=== PATIENT | male | born 1960 | race Caucasian/White ===

== ENCOUNTER → 2016-08-05 | Outpatient (CLI) | payer BC ==
--- NOTE | 2016-08-05 12:03 | XR ---
EXAMINATION TYPE: XR lumbar spine 2 or 3V DATE OF EXAM: 08/05/2016 11:25 AM CLINICAL HISTORY: pain TECHNIQUE: Three views of the lumbar spine are submitted. COMPARISON: 05/07/2016 FINDINGS: Again noted are changes fusion and lumbar laminectomy at L4-5 with rad[address] screws [address] place as well as intervertebral body spacers. Anterolisthesis of L4 and L5 is stable and measures approximately 3.6 mm. Severe degenerative change L5-S1. Remaining levels are unremarkable. IMPRESSION: Stable appearance of postoperative lumbar spine. ICD 10 NO FRACTURE, INITIAL EVALUATION
== END | disposition home or self-care (01) ==
LOC: RADXRMAIN 11:09
DX: M43.16 Spondylolisthesis, lumbar region (principal); M48.06 Spinal stenosis, lumbar region; Z98.1 Arthrodesis status
CPT/HCPCS: 72100

== ENCOUNTER → 2016-09-05 | Outpatient (CLI) | payer BC ==
--- NOTE | 2016-09-05 17:18 | MR ---
EXAMINATION TYPE: MR lumbar spine wo/w con DATE OF EXAM: 09/05/2016 3:33 PM COMPARISON: 02/15/2016 HISTORY: 56-year-old male Spondylolisthesis, lumbar region, Hx of surgery 2003 and . Extreme pa in after 2016 surgery. Technique: Multiplanar, multisequence images of the lumbar spine were obtained before and after admin istration of 19 mL intravenous MultiHance gadolinium contrast. FINDINGS: Interval removal of S1 transpedicular screws. The L5 transpedicular screws remain in place. Interval placement of L4-L5 posterior fusion with new L4 laminectomy decompressing the spinal canal at the lev el of grade 1 anterolisthesis. No retropulsion of the interbody device at L4-L5. Vertebral body heights are preserved. There is mild degenerative disc disease above the fusion at L3-L4 with mild disc desiccation and disc bulging. There is a component of mild congenital spinal canal stenosis in the lumbar spine with AP canal dimen raul of 1.3 cm. Further attenuation of the thecal sac secondary to prominent dorsal epidural fat. The re is also prominent ventral epidural fat opposite L5 level and below. Conus medullaris is normal. Partially visualized 2 cm cyst medial upper pole left kidney At T12-L1, there is mild congenital spinal canal narrowing without neural foraminal stenosis. At L1-L2, there is mild congenital spinal canal narrowing and mild facet degenerative change without significant neural foraminal stenosis. At L2/L3, there is mild facet arthropathy and mild congenital spinal canal narrowing with mild bulgin g disc and mild bilateral neuroforaminal stenosis. At L3-L4, the level above the fusion, there appears to be a new 5 mm centrally nonenhancing T1 hypoin tense and T2 hyperintense structure within the right lateral recess abutting the right lateral cauda equina nerve roots and displacing the traversing right L4 and L5 nerve roots. This also appears to co ntribute to a moderate right neuroforaminal stenosis, slightly increased from 02/15/2016. A mild left n euroforaminal stenosis also appears increased in disc material may be abutting the exiting left L3 ne rve root. At L4-L5, diffuse level, there is grade 1 anterolisthesis with dorsal decompression of the thecal sac . There is relatively similar mild bilateral neural foraminal stenosis. At L5-S1, prominent ventral epidural fat with dorsal decompression of the spinal canal. There is aguilar lar mild to moderate left and mild right neural foraminal stenosis. No definite suspicious enhancing perineural granulation tissue. No prevertebral or paravertebral soft tissue abnormality seen. IMPRESSION: 1. Interval removal of S1 posterior fusion hardware now with L4-L5 posterior/interbody fusion with c orresponding laminectomy and fixed grade 1 anterolisthesis now. 2. Above the fusion at L3-L4, there is a possible 5 mm synovial cyst encroaching onto the right later al recess that appears new and has mass effect onto the traversing right L4 and L5 nerve roots. This also contributes to a moderate right neuroforaminal stenosis, increased from 02/15/2016. A mild left ne uroforaminal stenosis at this level also appears increased with disc material abutting the exiting le ft L3 nerve root. 3. At the newly fused level, there is similar mild bilateral neuroforaminal stenoses. 4. At the previously fused L5-S1 level, there is similar mild to moderate left and mild right neurofo raminal stenosis. 5. Underlying mild congenital spinal canal stenosis.
== END | disposition home or self-care (01) ==
LOC: RADMRIMAIN 14:36
DX: M48.06 Spinal stenosis, lumbar region (principal); M99.73 Connective tissue and disc stenosis of intervertebral foramina of lumbar region; Z98.1 Arthrodesis status
CPT/HCPCS: 72158; A9577

== ENCOUNTER → 2016-11-26 | Outpatient (CLI) | payer BC ==
[2016-11-25 09:00] VITALS: BMI 34.3
[2016-11-26 12:57] VITALS: BP 137/80; PULSE 75; RESP 18; TEMP 97.7
--- NOTE | 2016-11-26 13:40 | P.HPIM ---
History of Present Illness H&P Date: 11/26/16 Chief Complaint: low back pain This is a 56-year-old patient referred by Dr. Agosto for chronic pain in low back without significant radiation to legs, but some radiation to hips. Patient has been taking medications from primary care physician including tramadol (rarely) medications with some relief. Patient denies adverse drug effects from medications. Patient also denies new-onset weakness, bowel/ bladder incontinence, or any other signs or symptoms of cauda equina syndrome. There are no signs of acute intoxication, and no indications of medication diversion or overuse. Patient notes that pain worsens significantly with standing and walking, and improves with rest, ice, and medication. Patient has used several types of medications for pain, including NSAIDS, OPIOIDS, TRAMADOL, but does not like taking pain medications. Patient HAS had surgery, most recently lami and fusion #2 by Surendra in March 2016. Patient HAS had injections previously, specifically epidural steroid injections , prior to his second back surgery, which helped him slightly. Patient HAS NOT had physical therapy recently. In addition to above, 13-point review of systems is also negative for chest pain , shortness of breath, changes in vision, changes in hearing, new onset weakness , abdominal pain, diarrhea, extreme fatigue, malaise, fever, skin changes, homicidal or suicidal ideation, or bowel or bladder incontinence. Vital Signs: Reviewed in EMR Gen: WDWN, AAOx3, NAD HEENT: NCAT, EOMI, hearing grossly normal Pulm: resp unlabored Abd: soft, NT, ND Neck: supple, trachea midline ROM in flexion lumbar spine: reduced ROM in extension lumbar spine: reduced Lumbar paravertebral tenderness: + Facet loading: + bilateral SI joint tenderness: + bilateral, L > R Rene's test: + bilateral, L > R Straight leg raise: neg Neuro: CN II-XII grossly intact, muscle strength lower extremities PRESERVED Past Medical History Past Medical History: Chest Pain / Angina, GERD/Reflux, Hyperlipidemia, Hypertension, Skin Disorder, Sleep Apnea/CPAP/BIPAP Additional Past Medical History / Comment(s): LOWER BACK PAIN, PSORAISIS, AND PSORIATIC ARTHRITIS, KIDNEY STONES, VERTIGO History of Any Multi-Drug Resistant Organisms: None Reported Past Surgical History: Back Surgery, Heart Catheterization, Orthopedic Surgery Additional Past Surgical History / Comment(s): KNEE ARTHROSCOPY, EGD WITH DILATION, FUSION OF S1-L5, CAGE L4 Past Anesthesia/Blood Transfusion Reactions: No Reported Reaction Past Psychological History: Anxiety, Depression Smoking Status: Former smoker Past Alcohol Use History: Occasional Additional Past Alcohol Use History / Comment(s): STARTED SMOKING 1971, HAS QUIT IN PAST FOR 8 YRS Past Drug Use History: None Reported - Past Family History Mother Family Medical History: Cancer Additional Family Medical History / Comment(s): SKIN Medications and Allergies Home Medications Medication Instructions Recorded Confirmed Type Aspirin [Adult Low Dose Aspirin EC] 81 mg PO DAILY 07/10/15 11/26/16 History Atenolol 50 mg PO DAILY 07/10/15 11/26/16 History Esomeprazole Magnesium [NexIUM] 40 mg PO DAILY 07/10/15 11/26/16 History Ezetimibe [Zetia] 10 mg PO DAILY 07/10/15 11/26/16 History Fish Oil/Dha/Epa [Fish Oil 1,200 1,200 mg PO DAILY 07/10/15 11/26/16 History mg Fish Oil] Valsartan/Hydrochlorothiazide 0.5 tab PO DAILY 07/10/15 11/26/16 History [Valsartan-Hctz 160-12.5 mg Tab] ALPRAZolam [Xanax] 0.5 mg PO Q8H PRN 07/23/15 11/26/16 History Apremilast [Otezla] 30 mg PO DAILY 11/25/16 11/26/16 History Citalopram Hydrobromide 20 mg PO DAILY 11/25/16 11/26/16 History Ibuprofen [Motrin] 800 mg PO DAILY PRN 11/25/16 11/26/16 History Isosorbide Dinitrate 30 mg PO DAILY 11/25/16 11/26/16 History hydrALAZINE HCL [Apresoline] 50 mg PO BID 11/25/16 11/26/16 History traMADol HCL [Ultram] 50 mg PO DAILY 11/25/16 11/26/16 History predniSONE 25 mg PO DIRECTED 11/26/16 11/26/16 History Allergies Allergy/AdvReac Type Severity Reaction Status Date / Time atorvastatin calcium AdvReac muscle pain Verified 11/26/16 12:43 [From Lipitor] Physical Exam Vitals: Vital Signs Temp Pulse Resp BP 11/26/16 12:47 97.7 F 75 18 137/80 Results Comments: MRI lumbar spine dated 09/05/2016 demonstrates facet degenerative changes at the L1-L2, L2-L3, L4-L5, and L5-S1 levels. At the L3-L4 level above the fusion there does appear to be a new 5 mm centrally nonenhancing T1 hypointense and T2 hyperintense structure within the right lateral recess displacing the traversing right L4 and L5 nerve roots. This is contributing to moderate right- sided neural foraminal stenosis. At the L4-L5 level there is a grade 1 anterolisthesis with dorsal decompression of thecal sac with mild bilateral neural foraminal stenosis. At the L5-S1 level with prominent ventral epidural fat with dorsal decompression of the spinal canal and moderate left and right neural foraminal stenosis. There is no perineural granulation tissue noted. Assessment and Plan (1) Postlaminectomy syndrome Status: Chronic (2) Lumbar spondylosis Status: Chronic (3) Chronic pain disorder Status: Chronic Plan: Plan: 1. Explanation: Opioid and psychological risk scores were reviewed. Diagnoses , prognoses, and multiple treatment options including but not limited to physical therapy, interventional therapies, adjuvant medical therapies, narcotic medication therapies, and surgery were discussed with the patient and all questions were answered to the patient's satisfaction. 2. Opioid agreement: no opioids prescribed today 3. Counseling: The patient was counseled extensively on BODY MASS INDEX, EXERCISE. Specifically, the patient was instructed regarding the importance of smoking cessation, obesity, and exercise in the context of both chronic pain and overall health. 4. Procedures: bilateral lumbar MBB L3-S1, then RFA if relief 5. Consultations: none 6. Investigations: none 7. Medications: none prescribed 8. Disposition: f/u for procedure as scheduled PQRS measures: 1-Patient's medications are documented in the chart. 2-Tobacco use is negative 3-Patient has not had a pneumococcal vaccine. 4-Advanced care planning discussed, patient unable to give. 5-Opioid contract NOT signed with the patient. 6-Pain positive, follow-up visit or procedure scheduled 7-Patient's blood pressure measured and documented, and patient will follow up with the primary care due to hypertension. 8-Patient's weight was measured, and body mass index ABOVE the normal limits, and counseling was done. Patient instructed to follow up with PCP. 9-Patient WAS NOT identified as an unhealthy alcohol user. Time with Patient: Greater than 30
== END | disposition home or self-care (01) ==
LOC: PNWHC3 12:34
PROVIDERS: ATTEND Anesthesiology
DX: M47.816 Spondylosis without myelopathy or radiculopathy, lumbar region (principal); M96.1 Postlaminectomy syndrome, not elsewhere classified; G89.29 Other chronic pain; K21.9 Gastro-esophageal reflux disease without esophagitis; E78.5 Hyperlipidemia, unspecified; F41.9 Anxiety disorder, unspecified; F32.9 Major depressive disorder, single episode, unspecified; I10 Essential (primary) hypertension; Z79.82 Long term (current) use of aspirin; Z79.51 Long term (current) use of inhaled steroids; Z79.899 Other long term (current) drug therapy; Z88.8 Allergy status to other drugs, medicaments and biological substances; Z87.891 Personal history of nicotine dependence
CPT/HCPCS: 99211

== ENCOUNTER → 2016-12-03 | Outpatient (CLI) | payer BC ==
--- NOTE | 2016-12-03 12:00 | XR ---
EXAMINATION TYPE: XR lumbar spine 2 or 3V DATE OF EXAM: 12/03/2016 11:28 AM COMPARISON: 08/05/2016 HISTORY: 56-year-old male lumbar spinal stenosis, back surgery one year ago. TECHNIQUE: 3 views FINDINGS: There are postsurgical changes of L4-L5 posterior and interbody fusion. Trace grade 1 anterolisthesis above the fusion at L3-L4 is unchanged. Also, grade 1 retrolisthesis at L2-L3 redemonstrated. Verteb ral body heights are preserved. Positioning of the interbody device stable. Fixed grade 1 anterolisth esis at the fused level. IMPRESSION: 1. Postsurgical changes of L4-L5 posterior and interbody fusion with a fixed grade 1 anterolisthesis at the fused level. 2. Grade 1 retrolistheses at both L2-L3 and L3-L4 relatively similar. 3. No vertebral compression collapse.
== END | disposition home or self-care (01) ==
LOC: RADXRMAIN 11:04
DX: M43.16 Spondylolisthesis, lumbar region (principal); M43.26 Fusion of spine, lumbar region; Z98.890 Other specified postprocedural states
CPT/HCPCS: 72100

== ENCOUNTER 2016-12-30 07:28 | Day surgery (SDC) | payer BC ==
[2016-12-25 16:01] VITALS: BMI 35.3
[~2016-12-30 07:28] MED LIST: LACTATED RINGERS 1,000 ML IV SCH
[2016-12-30 07:53] VITALS: RESP 16; TEMP 97.3
[2016-12-30] MEDS ORDERED: LIDOCAINE 1% 20 ML VIAL (10MG/ML) FOR IV START SQ ONE (08:03)
[2016-12-30] MEDS ORDERED: BUPIVACAINE (PF) 0.5% 30 ML VIAL ONE (08:38)
[2016-12-30] MEDS ORDERED: fentaNYL (PF) 50 MCG/ML 2 ML AMP ONE (08:38)
[2016-12-30] MEDS ORDERED: MIDAZOLAM 2 MG/2 ML VIAL ONE (08:38)
[2016-12-30] MEDS ORDERED: DEXAMETHASONE SOD PHOS (MDV) 100 MG/10 ML VIAL ONE (08:38)
--- NOTE | 2016-12-30 09:09 | P.PCN ---
Date of Procedure: 12/30/16 Preoperative Diagnosis: Postoperative Diagnosis: Procedure(s) Performed: PREOPERATIVE DIAGNOSIS : 1- Lumbar spondylosis with Facet Arthropathy without myelopathy . POSTOPERATIVE DIAGNOSIS: 1- Lumbar spondylosis with Facet Arthropathy without myelopathy . PROCEDURE: Diagnostic bilateral L3 -4 , L4 -5 , and L5-S1 medial branch block under fluoroscopy ANESTHESIA: Local with 1% lidocaine 6 ml ; IV sedation with Versed 2 mg and Fentanyl 100 mcg. EBL: Minimal COMPLICATION: None. IV FLUIDS: 100 mL of normal saline. PROCEDURE INDICATION: Chronic low back pain secondary to Facet arthropathy unresponsive to conservative treatment. PROCEDURE DESCRIPTION: the patient was seen and identified in the preop holding area , risks and benefits and possible complications of the procedure and alternative were discussed with the patient, and the patient agreed to proceed with the procedure and signed the consent IV was started and vital signs monitored during the procedure and fluoroscopy was used to maximize the benefit and accuracy of the needle placement, and sedation was given to decrease patient anxiety, patient was taken to the procedure room and placed in prone position vital signs monitored in the back prepped with chlorhexidine X3 then under strict sterile technique using a right oblique fluoroscopy ,the junction of the transverse process and the superior articulating process of the right L3- 4 , L4- 5, and L5-S1 vertebra which corresponding to the fluoroscopy image of the eye of the Tyrell dog on the block side for the medial branches and subsequently , after local infiltration of skin and subcu tissuies with lidocaine 1% one mL at each level ,then 22- gauge Quincke-type needles , 3 needle was used , each one of them placed at the junction of the base of the transverse process and the superior articular process at the appropriate level, and the needle was advanced until the periosteum contacted, needle placement confirmed with AP oblique and lateral view and after appropriate needle placement confirmed, and after negative aspiration for heme and CSF and there was no paresthesia 1-1/2 mL of Marcaine 0.5% mixed with 40 mg Kenalog , then half mL injected at each level after negative aspiration the needle subsequently removed and the same procedure repeated for the left side at left side at L3-4, L4- 5 and L5-S1 levels. At the end of the procedure and the needles removed and a bandage applied after the skin was cleaned the cleaning solution patient taken to recovery room in stable condition and monitors in the recovery room for 20-30 minutes and discharged home in stable condition after discharge criteria met and patient will follow up with the pain clinic in 2-4 weeks Implants: Indications for Procedure: Operative Findings: Description of Procedure:
[2016-12-30 09:17] VITALS: PULSE 60
--- NOTE | 2016-12-30 09:22 | FL ---
EXAMINATION TYPE: FL guided pain mgmt statistic DATE OF EXAM: 12/30/2016 HISTORY: Flouroscopy time 10 seconds of fluoroscopy provided. IMPRESSION: 1. Fluoroscopy time.
[2016-12-30 09:24] VITALS: BP 157/82
[2016-12-30] MEDS ORDERED: IV FLUID CONTINUATION 1,000 ML IV ONE (09:48)
== END 2016-12-30 09:54 | disposition home or self-care (01) ==
LOC: ORPAIN 07:28
PROVIDERS: ATTEND Specialist
DX: G89.29 Other chronic pain (principal); M47.816 Spondylosis without myelopathy or radiculopathy, lumbar region; M46.96 Unspecified inflammatory spondylopathy, lumbar region; I10 Essential (primary) hypertension; I25.10 Atherosclerotic heart disease of native coronary artery without angina pectoris; G47.33 Obstructive sleep apnea (adult) (pediatric); Z88.8 Allergy status to other drugs, medicaments and biological substances
CPT/HCPCS: 64493; 64494; 64495; 99152; J2250; J3010; J1100

== ENCOUNTER 2017-02-06 12:23 | Day surgery (SDC) | payer BC ==
[2017-02-03 14:14] VITALS: BMI 34.5
[2017-02-06 12:43] VITALS: RESP 18; TEMP 98.2
[2017-02-06] MEDS ORDERED: LIDOCAINE 1% 20 ML VIAL (10MG/ML) FOR IV START INTRADERMA ONE (13:07)
[2017-02-06 13:09] LABS: Glucose,Whole Blood 84 mg/dL (75-99)
--- NOTE | 2017-02-06 13:27 | P.PCN ---
Date of Procedure: 02/06/17 Preoperative Diagnosis: Postoperative Diagnosis: Procedure(s) Performed: Implants: Surgeon: Matias Barbosa Pathology: none sent Condition: stable Disposition: PACU Indications for Procedure: Operative Findings: Description of Procedure: PREOPERATIVE DIAGNOSIS: L3-L4, L4-L5, and L5-S1 spondylosis without myelopathy and facet arthropathy. POSTOPERATIVE DIAGNOSIS: L3-L4, L4-L5, and L5-S1 spondylosis without myelopathy and facet arthropathy. PROCEDURE DESCRIPTION: Patient presents for L3-L4, L4-L5 and L5-S1 diagnostic medial branch blocks under fluoroscopic guidance. The procedure is performed using fluoroscopic guidance during needle placement to assure proper position and maximize safety. ANESTHESIA: Local with 1% lidocaine; conscious sedation EBL: Minimal PROCEDURE INDICATION: Patient with lumbar facet arthropathy signs and symptoms, here for diagnostic medial branch block. Pt does not take any blood thinning medications. PROCEDURE DESCRIPTION: The patient was seen and identified in the preoperative area. Risks, benefits, complications, and alternatives were discussed with the patient (including but not limited to incomplete pain relief, bleeding, infection, nerve damage, and allergies to medications), the patient agreed to proceed with the procedure and signed the consent after all questions were answered. Patient was taken to the OR and time out was completed to verify proper patient, position, laterality of pain, and allergies. Pt was placed in the prone position and a pillow was placed under the abdomen to reduce lumbar lordosis. The lumbosacral area was prepped and draped in the usual sterile fashion. Using oblique fluoroscopy, the eye of the "Tyrell dog" of right L4 vertebral body, which corresponds to the path of the medial branch originating from the level above, which is L3 in this case, was identified. Subsequently, a 22-gauge 3.5-inch spinal needle was inserted under fluoroscopic guidance toward the eye of the "Tyrell dog" of the right L4 vertebral body, corresponding to the junction of the superior articular process and the transverse process of the pedicle of the same level. After needle tip confirmation on lateral view and after negative aspiration for CSF and blood and without paresthesias, 1 mL of a 6 ml solution of 0.5% preservative-free bupivacaine and 40 mg Kenalog was injected. Subsequently the needle was withdrawn intact and the same procedure was repeated for the right L4, right L5, left L3, left L4, and left L5 medial branches which together with right L3 medial branch correspond to the sensory innervation of the bilateral L3-L4, L4-L5, and L5-S1 facet joints. Needle was withdrawn intact after each injection. At the end of the procedure, the skin was cleansed and bandages were applied. COMPLICATIONS: None. DISPOSITION/PLAN: The patient taken to the recovery area after the procedure in a stable condition for observation. Patient was reexamined prior to discharge and there were no issues. Patient was discharged home, accompanied by an adult, after meeting discharged criteria. Discharge instructions were give to the patient by the staff. Patient was specifically instructed not to drive today and to rest for the rest of the day. If patient has relief, he will be scheduled for right vs. left lumbar RFA. Visualization was somewhat technically challenging at L3- L4 and L4-L5 levels given patient's hardware, so can consider performing ablation at one level above if needed.
[2017-02-06] MEDS ORDERED: IV FLUID CONTINUATION 1,000 ML IV ONE (13:33)
--- NOTE | 2017-02-06 13:44 | FL ---
FLUOROSCOPY 22 of fluoroscopy time were utilized during Pain Injection. 6 images document the procedure.
[2017-02-06 13:51] VITALS: BP 145/85; PULSE 72
== END 2017-02-06 14:12 | disposition home or self-care (01) ==
LOC: ORPAIN 12:23
PROVIDERS: ATTEND Anesthesiology
DX: G89.29 Other chronic pain (principal); M47.816 Spondylosis without myelopathy or radiculopathy, lumbar region; M47.817 Spondylosis without myelopathy or radiculopathy, lumbosacral region; M46.96 Unspecified inflammatory spondylopathy, lumbar region; M46.97 Unspecified inflammatory spondylopathy, lumbosacral region; I10 Essential (primary) hypertension; E78.5 Hyperlipidemia, unspecified; Z79.82 Long term (current) use of aspirin; Z79.1 Long term (current) use of non-steroidal anti-inflammatories (NSAID); Z79.891 Long term (current) use of opiate analgesic; Z79.899 Other long term (current) drug therapy; Z88.8 Allergy status to other drugs, medicaments and biological substances
CPT/HCPCS: 64493; 64494; 64495; 99152; J2250; J3301

== ENCOUNTER 2017-03-11 06:56 | Day surgery (SDC) | payer BC ==
[2017-03-03 15:55] VITALS: BMI 35.0
[2017-03-11 07:08] VITALS: RESP 16; TEMP 97.4
[2017-03-11] MEDS ORDERED: LIDOCAINE 1% 20 ML VIAL (10MG/ML) FOR IV START INTRADERMA ONE (07:14)
[2017-03-11] MEDS ORDERED: ENALAPRILAT 1.25 MG/ML 1 ML VIAL IVP STA (07:59)
--- NOTE | 2017-03-11 07:59 | P.PCN ---
Date of Procedure: 03/11/17 Preoperative Diagnosis: Postoperative Diagnosis: Procedure(s) Performed: Implants: Surgeon: Matias Barbosa Pathology: none sent Condition: stable Disposition: PACU Indications for Procedure: Operative Findings: Description of Procedure: PREOPERATIVE DIAGNOSIS: Lumbar spondylosis without myelopathy and facet arthropathy POSTOPERATIVE DIAGNOSIS: Lumbar spondylosis without myelopathy and facet arthropathy PROCEDURES: Left Radiofrequency thermocoagulation, L3-L4, L4-L5, and L5-S1 medial branch, with fluoroscopic guidance. ANESTHESIA: 1% lidocaine plain; Conscious sedation with versed/fentanyl EBL: Minimal PROCEDURE INDICATION: The patient with low back pain secondary to lumbar arthropathy who had more than 50% relief of pain with previous diagnostic lumbar medial branch block with bupivacaine. Patient presents for left lumbar RFA today; no use of blood thinners. PROCEDURE DESCRIPTION / TECHNIQUE: The patient was seen and identified in the preoperative area. Risks, benefits, complications, and alternatives were discussed with the patient (including but not limited to incomplete pain relief , bleeding, infection, nerve damage, and allergies to medications), the patient agreed to proceed with the procedure and signed the consent after all questions were answered. Patient was taken to the OR and time out was completed to verify proper patient , position, laterality of pain, and allergies. Pt was placed in the prone position. IV was started. Vital signs remained stable throughout the procedure. A pillow was placed under the patients chest to decrease lordosis. The lumbosacral area was prepped and draped in the usual sterile fashion. Vital signs were closely monitored during the procedure. Conscious sedation was used during the procedure to decrease patients anxiety. Using AP and then oblique fluoroscopy, the eye of the Tyrell dog corresponding to the connection between the superior and transverse articular processes of left L4, L5 and top of the sacrum were identified, marked, and localized with 1% lidocaine. Subsequently, a 20 gauge, 100-mm radiofrequency cannula with a 10-mm active tip was advanced guided by fluoroscopy to each of the eyes of the Tyrell dog at left L3, L4, and L5 medial branches. Each site then underwent sensory testing at 50 Hz and 0 to 1 volt and motor testing at 2 Hz and 0 to 3 volt with local stimulation, but no radicular symptoms down the legs. Thereafter the left L3, L4, and L5 medial branch sites underwent radiofrequency thermocoagulation at 80 degrees Celsius for 90 seconds after injecting 0.5 ml of PF lidocaine 1%. After thermocoagulation, 1 ml of the block solution containing 3 mL of preservative-free 1% lidocaine was injected at the left L3, L4, and L5 medial branch levels after negative aspiration of CSF and blood and with no paresthesias. Cannulas were retracted while injecting lidocaine 1% until the needles were removed. At the end of the procedure, the skin was cleansed and bandages were applied. COMPLICATIONS: No acute complications. DISPOSITION / PLANS: The patient was placed in a supine position and transferred to the recovery area in a stable condition for observation and was discharged from the recovery room after meeting discharge criteria. Home discharge instructions given to the patient by the staff. The patient was reexamined prior to discharge. The patient will schedule right lumbar RFA next.
--- NOTE | 2017-03-11 08:08 | FL ---
FLUOROSCOPY 30 seconds of fluoroscopy time were utilized during Pain Injection. 3 images document the procedure.
[2017-03-11] MEDS ORDERED: IV FLUID CONTINUATION 1,000 ML IV ONE (08:11)
[2017-03-11 08:17] VITALS: PULSE 60
[2017-03-11 08:40] VITALS: BP 147/80
== END 2017-03-11 08:54 | disposition home or self-care (01) ==
LOC: ORPAIN 06:56
PROVIDERS: ATTEND Anesthesiology
DX: G89.29 Other chronic pain (principal); M47.816 Spondylosis without myelopathy or radiculopathy, lumbar region; M46.96 Unspecified inflammatory spondylopathy, lumbar region; I10 Essential (primary) hypertension; E78.5 Hyperlipidemia, unspecified; Z88.8 Allergy status to other drugs, medicaments and biological substances; Z79.82 Long term (current) use of aspirin; Z79.899 Other long term (current) drug therapy
CPT/HCPCS: 64635; 64636; 99152; 99153; J2250; J3010

== ENCOUNTER 2017-04-08 06:56 | Day surgery (SDC) | payer BC ==
[2017-04-03 15:54] VITALS: BMI 33.4
[2017-04-08 08:25] VITALS: TEMP 97.6
[2017-04-08] MEDS ORDERED: LACTATED RINGERS 1,000 ML IV ONE (08:25)
[2017-04-08] MEDS ORDERED: LIDOCAINE 1% 20 ML VIAL (10MG/ML) FOR IV START INTRADERMA ONE (08:27)
[2017-04-08 08:42] LABS: Glucose,Whole Blood 93 mg/dL (75-99)
--- NOTE | 2017-04-08 08:55 | P.PCN ---
Date of Procedure: 04/08/17 Procedure(s) Performed: PREOPERATIVE DIAGNOSIS: 1-Lumbar Spondylosis with Facet Arthropathy without myelopathy. POSTOPERATIVE DIAGNOSIS: 1- Lumbar Spondylosis with Facet Arthropathy without myelopathy. PROCEDURES : Right Radiofrequency thermocoagulation, L3-L4, L4-L5, and L5-S1 medial branch, with fluoroscopic guidance ANESTHESIA: IV sedation with versed 2 mg and fentaneyl 50 mcg and local infiltration with lidocaine 1% 6 ml EBL: Minimal PROCEDURE INDICATION: The patient with low back pain secondary to lumbar facet arthropathy who had more than 50% relief of her pain with previous diagnostic lumbar medial branch block with bupivacaine. PROCEDURE DESCRIPTION / TECHNIQUE: The patient was seen and identified in the preoperative area. Risks, benefits, complications, including but not limited to risk of infection ,bleeding , allergic reactions to the medications and no complete pain releife , and alternatives were discussed with the patient, the patient agreed to proceed with the procedure and signed the consent. IV was started. Vital signs remained stable throughout the procedure. Patient was taken to the OR and time out was completed. The patient was placed in the prone position on the procedure table. The lumber area was prepped and draped in the usual sterile fashion. . Vital signs were closely monitored during the procedure .IV sedation was used during the procedure to decrease patients anxiety. Using AP and then oblique fluoroscopy, the ``eye of the Tyrell dog corresponding to the connection between the superior and transverse articular processes of right L3, L4, and L5 were identified, marked, and localized with 1 % lidocaine. Subsequently, a 18 [id number] radiofrequency cannula with a 10- mm active tip was advanced guided by fluoroscopy to each of the ``eyes of the Tyrell dog at right L3, L4, and L5. Each site then underwent sensory testing at 50 Hz and 0 to 1 volt and motor testing at 2.5 Hz and 0 to 3 volt with local stimulation, but no radicular symptoms down the legs. Thereafter the right L3-4, L4-5, and L5-S1 sites underwent radiofrequency thermocoagulation at 80 degrees celsius for 90 seconds after injecting 0.5 ml of PF lidocaine 1%. then After the thermocoagulation done , 1 ml of the block solution containing Kenalog 40 mg and 3 ml of marain 0.5% was injected at the right L3- 4 , L4-5 , and L5-S1, levels after negative aspiration of CSF and blood and with no paresthesias. Cannulas were retracted while injecting lidocaine 1% until the needle is out. At the end of the procedure, the skin was cleansed and bandages were applied. COMPLICATIONS: No acute complications. DISPOSITION / PLANS: The patient was placed in a supine position and transferred to the recovery area in a stable condition for observation and was discharged from the recovery room after meeting discharge criteria. Home discharge instructions given to the patient by the staff. The patient was reexamined prior to discharge. The patient will schedule a follow up in the clinic in 2-4 weeks.
[2017-04-08] MEDS ORDERED: IV FLUID CONTINUATION 1,000 ML IV ONE (09:01)
[2017-04-08 09:12] VITALS: RESP 18
[2017-04-08 09:17] VITALS: BP 155/79; PULSE 56
[2017-04-08] MEDS ORDERED: LACTATED RINGERS 1,000 ML IV SCH (09:17)
--- NOTE | 2017-04-08 09:56 | FL ---
EXAMINATION TYPE: FL guided pain mgmt statistic DATE OF EXAM: 04/08/2017 CLINICAL HISTORY: Low back pain. TECHNIQUE: Fluoroscopy. COMPARISON: None. FINDINGS: Fluoroscopic guidance was provided during pain relief procedure performed by Dr. Beckman . A total of 7 seconds of fluoroscopic time was utilized during the procedure and 3 spot images are acquired. Images acquired shows needle localization at several levels in the lower lumbar spine, pos tsurgical change L4-L5 level is noted. IMPRESSION: As Above.
== END 2017-04-08 09:38 | disposition home or self-care (01) ==
LOC: ORPAIN 06:56
PROVIDERS: ATTEND Specialist
DX: M46.96 Unspecified inflammatory spondylopathy, lumbar region (principal); M47.816 Spondylosis without myelopathy or radiculopathy, lumbar region; Z88.8 Allergy status to other drugs, medicaments and biological substances
CPT/HCPCS: 64635; 64636 ×2; 99152; J2250; J3301; J3010; 99153

== ENCOUNTER → 2017-04-30 | Outpatient (CLI) | payer BC ==
[2017-04-30 12:31] VITALS: BP 147/84; PULSE 64; RESP 18
--- NOTE | 2017-04-30 13:09 | P.PN ---
Subjective Progress Note Date: 04/30/17 This is follow-up visit for this patient with a history of severe and chronic low back pain secondary to lumbar degenerative disc disease, lumbar spondylosis with facet arthropathy, lumbar spinal stenosis we did interventional pain management injection, diagnostic medial branch block and it was successful and recently we have done at the frequency ablation of the medial branch lumbar area , 4 days ago patient was tripped and he fell on his back , and he started feeling severe low back pain, bilaterally. He denies any motor or sensory deficit , He is able to ambulate on his own without difficulty patient currently on 1-Ultram 50 mg when necessary Patient denies any side effects of the medication, denies excessive drowsiness or sleepiness, denies suicidal ideation, and reports that the current pain medication is NOT helping To control the pain and improve activity of daily living . Patient denies any motor or sensory deficit, denies change in bowel movement or urination, patient denies any fever or night sweats Objective - Exam Physical Examinations : 1-Constitutiona : Cooperative , not in acute distress . 2-HEENT : nech ; supple , no Lymphadenopathy , normal thyroid size . eyes : no ptosis , no icterus, no photophobia . ENT : normal of hearing , normal oropharynx , no Thrush . 3- Respiratory : Chest clear to auscultations Bilaterally , no wheezing , no Rhonchi . 4- Cardiovascular : regular rate and rhythem , S1 , S2 , no S3 , no S4. 5- Gastrointestinal : abdomen soft no tenderness , bowel sounds positive all four quadrents , no organomegally . 6- Genitourinary : Defferred . 7- neurologic : Cranial nerve II to XII intact , no focal neurological deffecit . 8-psychatric : alert , oriented X 3 , appropriate affect , intact judgment and insight . 9-Lymphatic : no Lymphadenopathy . 10- musculoskeltal : , Lumber spine = normal moter stegnth lower extremities ,thigh and legs .5/5 deep tendon reflexes : normal Knee Jerk , normal ankle Jerk . lumber facet Loading Test positive strait leg raising test negative billaterale Fabere test negative bilaterally Sever tenderness over the Sacroiliac joint on the Left side Trigger point in the lumbar paravertebral muscles bilaterally Assessment and Plan Plan: Assessment and plan= chronic low back pain secondary to lumbar degenerative disc disease , lumbar spondylosis with lumbar facet arthropathy , status post radiofrequency ablation of the medial branch lumbar area , he did very well after the radiofrequency , currently patient having low back pain after he fell exam was negative for any focal neurologic deficit, mostly patient had myofascial component of the low back pain for this reason I recommend patient to be started on baclofen 10 mg half a tablet by mouth a.m., half a tablet every afternoon and 1 tablet daily at bedtime, and also patient could benefit from Motrin 800 mg every 8 hours dispense 90 with 1 refill and patient will follow up in the pain clinic in 6-8 weeks, advised patient to do massage therapy,/ physical therapy and he reported that he has done physical therapy in the past and he will do his exercises at home to relax the muscles in the lumbar area ,
== END ==
LOC: PNWHC3 11:42
PROVIDERS: ATTEND Specialist
DX: M51.36 Other intervertebral disc degeneration, lumbar region (principal); M47.816 Spondylosis without myelopathy or radiculopathy, lumbar region; M46.86 Other specified inflammatory spondylopathies, lumbar region; Z79.891 Long term (current) use of opiate analgesic; Z79.899 Other long term (current) drug therapy
CPT/HCPCS: 99211

== ENCOUNTER → 2017-07-04 | Outpatient (CLI) | payer BC ==
[2017-07-05 02:57] LABS: Anisocytosis Slight; Basophils # (A) 0.1 k/uL (0-0.2); Basophils % (A) 1 %; Eosinophils # (A) 0.1 k/uL (0-0.7); Eosinophils % (A) 2 %; HCT 41.2 % (39.0-53.0); HGB 13.2 gm/dL (13.0-17.5); Lymphocytes # (A) 2.1 k/uL (1.0-4.8); Lymphocytes % (A) 25 %; MCH 28.5 pg (25.0-35.0); MCHC 31.9 g/dL (31.0-37.0); MCV 89.2 fL (80.0-100.0); Mean Platelet Volume 7.7; Monocytes # (A) 0.6 k/uL (0-1.0); Monocytes % (A) 7 %; Neutrophils # (A) 5.4 k/uL (1.3-7.7); Neutrophils % (A) 64 %; Platelet Count 311 k/uL (150-450); RBC 4.62 m/uL (4.30-5.90); RDW 16.3 % (11.5-15.5); WBC 8.5 k/uL (3.8-10.6)
[2017-07-05 08:14] LABS: ALT 37 U/L (21-72); AST 19 U/L (17-59); Albumin 3.9 g/dL (3.5-5.0); Blood Urea Nitrogen 11 mg/dL (9-20); C Reactive Protein 6.2 mg/L (<10.0)
[2017-07-05 13:14] LABS: Hemoglobin A1C 5.7 % (4.0-6.0)
[2017-07-05 21:04] LABS: Erythrocyte Sedimentation Rate 4 mm/hr (0-15)
== END | disposition home or self-care (01) ==
LOC: LABWHC1 10:34
PROVIDERS: ATTEND Internal Medicine Rheumatology
DX: E11.10 Type 2 diabetes mellitus with ketoacidosis without coma (principal); D63.8 Anemia in other chronic diseases classified elsewhere; M25.50 Pain in unspecified joint; N18.9 Chronic kidney disease, unspecified; R77.0 Abnormality of albumin; Z79.1 Long term (current) use of non-steroidal anti-inflammatories (NSAID)
CPT/HCPCS: 36415; 82040; 82565; 83036; 84450; 84460; 84520; 85025; 85652; 86140

== ENCOUNTER 2017-08-04 06:37 | Day surgery (SDC) | payer BC ==
[2017-07-29 15:14] VITALS: BMI 33.9
[2017-08-04 07:16] VITALS: RESP 18; TEMP 98.1
[2017-08-04] MEDS ORDERED: LACTATED RINGERS 1,000 ML IV ONE (07:18)
[2017-08-04] MEDS ORDERED: LIDOCAINE 1% 20 ML VIAL (10MG/ML) FOR IV START INTRADERMA ONE (07:19)
[2017-08-04 07:21] LABS: Glucose,Whole Blood 85 mg/dL (75-99)
--- NOTE | 2017-08-04 08:06 | P.PCN ---
Date of Procedure: 08/04/17 Procedure(s) Performed: Preoperative diagnoses= 1-lumbar spondylosis with lumbar facet arthropathy without myelopathy 2-bilateral sacroiliac joint dysfunction. 3- PLPS Postoperative diagnoses= same as preoperative diagnosis. Procedure= bilateral sacroiliac joint steroid injection under fluoroscopic guidance. Anesthesia= moderate sedation with Versed 2 mg and fentanyl 50 micrograms and local infiltration with lidocaine 1% 4 ml Estimated blood loss=minimal. Procedure indication= the patient had a history of severe chronic low back pain , diagnosed with sacroiliitis and lumbar sacral facet arthropathy unresponsive to conservative treatment. Procedure description= the patient was seen and identified in the preoperative holding area, risks and benefits and alternative of the procedure and possible complications discussed with the patient, and he agreed with the preceding, patient signed the consent, an IV was started, and vital signs were monitored and were stable throughout the procedure, patient was placed in the prone position or table and the lumbosacral area was prepped and draped with a sterile fashion, vital signs were closely monitored during the procedure, the fluoroscopy camera was placed in the contralateral oblique view on the right sacroiliac joint and the lower part of the joint was identified, local infiltration of the skin and subcutaneous tissue with lidocaine 1% 2 mL then a 22-gauge Quincke-type spinal needle advanced slowly under fluoroscopy and placed in the posterior and inferior border of the right sacroiliac joint, placement confirmed with AP and lateral view, and after appropriate needle placement confirmed and after negative aspiration for heme and CSF and there was no paresthesia during the injection, 3 ml of Marcaine 0.5% and 40 mg of Kenalog injected after negative aspiration, the needle removed, and the entire same procedure was repeated for the left sacroiliac joint Patient tolerated the procedure well without any complication, The patient returned to supine position after the back was cleaned and a Band- Aid applied, the patient transported to recovery room in stable condition and he was monitored for 30 minutes before he was discharged home and then patient was reexamined before going home and patient was discharged in stable condition and patient will follow up with the pain clinic in a few weeks
[2017-08-04] MEDS ORDERED: IV FLUID CONTINUATION 1,000 ML IV ONE (08:18)
--- NOTE | 2017-08-04 08:22 | FL ---
EXAMINATION TYPE: FL guided pain mgmt statistic DATE OF EXAM: 08/04/2017 FLUOROSCOPY Fluoroscopy time of 3 seconds was used during bilateral SI joint injections. 2 image/s document/s th e procedure.
[2017-08-04 08:38] VITALS: BP 149/77; PULSE 52
== END 2017-08-04 08:43 | disposition home or self-care (01) ==
LOC: ORPAIN 06:37
PROVIDERS: ATTEND Specialist
DX: G89.29 Other chronic pain (principal); M47.816 Spondylosis without myelopathy or radiculopathy, lumbar region; M53.3 Sacrococcygeal disorders, not elsewhere classified; M46.1 Sacroiliitis, not elsewhere classified; I10 Essential (primary) hypertension; I25.10 Atherosclerotic heart disease of native coronary artery without angina pectoris; K21.9 Gastro-esophageal reflux disease without esophagitis; Z88.8 Allergy status to other drugs, medicaments and biological substances
CPT/HCPCS: 27096; J2250; J3301; J3010

== ENCOUNTER 2017-08-28 08:59 | Day surgery (SDC) | payer BC ==
[2017-08-21 15:22] VITALS: BMI 31.8
[2017-08-28 09:09] VITALS: RESP 16; TEMP 96.9
[2017-08-28] MEDS ORDERED: LIDOCAINE 1% 20 ML VIAL (10MG/ML) FOR IV START INTRADERMA ONE (09:15)
[2017-08-28 09:21] LABS: Glucose,Whole Blood 82 mg/dL (75-99)
--- NOTE | 2017-08-28 10:42 | P.PCN ---
Date of Procedure: 08/28/17 Procedure(s) Performed: Preoperative diagnoses= 1-lumbar spondylosis 2-bilateral sacroiliac joint dysfunction. 3-postlaminectomy pain syndrome Postoperative diagnoses= same as preoperative diagnosis. Procedure= bilateral sacroiliac joint steroid injection under fluoroscopic guidance. Anesthesia= moderate sedation with Versed 2 mg and fentanyl 100 micrograms and local infiltration with lidocaine 1% 4 ml Estimated blood loss=minimal. Procedure indication= the patient had a history of severe chronic low back pain , diagnosed with sacroiliitis and lumbar sacral facet arthropathy unresponsive to conservative treatment. Procedure description= the patient was seen and identified in the preoperative holding area, risks and benefits and alternative of the procedure and possible complications discussed with the patient, and he agreed with the preceding, patient signed the consent, an IV was started, and vital signs were monitored and were stable throughout the procedure, patient was placed in the prone position or table and the lumbosacral area was prepped and draped with a sterile fashion, vital signs were closely monitored during the procedure, the fluoroscopy camera was placed in the contralateral oblique view on the right sacroiliac joint and the lower part of the joint was identified, local infiltration of the skin and subcutaneous tissue with lidocaine 1% 2 mL then a 22-gauge Quincke-type spinal needle advanced slowly under fluoroscopy and placed in the posterior and inferior border of the right sacroiliac joint, placement confirmed with AP and lateral view, and after appropriate needle placement confirmed and after negative aspiration for heme and CSF and there was no paresthesia during the injection, 3 ml of Marcaine 0.5% and 40 mg of Kenalog injected after negative aspiration, the needle removed, and the entire same procedure was repeated for the left sacroiliac joint Patient tolerated the procedure well without any complication, The patient returned to supine position after the back was cleaned and a Band- Aid applied, the patient transported to recovery room in stable condition and he was monitored for 30 minutes before he was discharged home and then patient was reexamined before going home and patient was discharged in stable condition and patient will follow up with the pain clinic in a few weeks
[2017-08-28 11:37] VITALS: BP 146/81; PULSE 64
[2017-08-28] MEDS ORDERED: IV FLUID CONTINUATION 1,000 ML IV ONE (11:39)
--- NOTE | 2017-08-28 12:30 | FL ---
Fluoroscopy HISTORY: Pain 5 seconds fluoroscopy time supplied to the referring clinician. 3 intraoperative C-arm images docume nt the procedure. See dictated report from anesthesia.
== END 2017-08-28 11:43 | disposition home or self-care (01) ==
LOC: ORPAIN 08:59
PROVIDERS: ATTEND Specialist
DX: G89.29 Other chronic pain (principal); M53.3 Sacrococcygeal disorders, not elsewhere classified; M47.816 Spondylosis without myelopathy or radiculopathy, lumbar region; I25.10 Atherosclerotic heart disease of native coronary artery without angina pectoris; I10 Essential (primary) hypertension; G47.33 Obstructive sleep apnea (adult) (pediatric); Z88.8 Allergy status to other drugs, medicaments and biological substances
CPT/HCPCS: 99152

== ENCOUNTER → 2017-10-01 | Outpatient (CLI) | payer BC ==
[2017-10-01 12:45] VITALS: BP 139/86; PULSE 73; RESP 18; TEMP 98.6
--- NOTE | 2017-10-01 13:07 | P.PN ---
Subjective Progress Note Date: 10/01/17 This is 57 years old male with history of chronic severe low back pain patient diagnosed with failed back surgery syndrome and lumbar area, lumbar spondylosis with lumbar facet arthropathy, and bilateral sacroiliac joint dysfunction, status post bilateral sacroiliac joint steroid injection, the pain decreased after the first injection from VAS 8/10 and decrease to 2/10 after the first injection and in the second injection pain decreased from 8/10-4/10 after the second injection Objective - Vital Signs Vital signs: Vital Signs Temp 98.6 F 10/01/17 12:37 Pulse 73 10/01/17 12:37 Resp 18 10/01/17 12:37 BP 139/86 10/01/17 12:37 Pulse Ox 97 10/01/17 12:37 Intake & Output 09/30/17 10/01/17 10/01/17 18:59 06:59 18:59 Weight 88.904 kg - Exam Physical Examinations : 1-Constitutiona : Cooperative , not in acute distress . 2-HEENT : nech ; supple , no Lymphadenopathy , normal thyroid size . eyes : no ptosis , no icterus, no photophobia . ENT : normal of hearing , normal oropharynx , no Thrush . 3- Respiratory : Chest clear to auscultations Bilaterally , no wheezing , no Rhonchi . 4- Cardiovascular : regular rate and rhythem , S1 , S2 , no S3 , no S4. 5- Gastrointestinal : abdomen soft no tenderness , bowel sounds positive all four quadrents , no organomegally . 6- Genitourinary : Defferred . 7- neurologic : Cranial nerve II to XII intact , no focal neurological deffecit . 8-psychatric : alert , oriented X 3 , appropriate affect , intact judgment and insight . 9-Lymphatic : no Lymphadenopathy . 10- musculoskeltal : , Lumber spine = normal moter stegnth lower extremities ,thigh and legs .5/5 deep tendon reflexes : normal Knee Jerk , normal ankle Jerk . lumber facet Loading Test positive Sever tenderness over the Sacroiliac joint on the Right , and Left side Assessment and Plan Plan: Assessment and plan= chronic severe low back pain secondary to bilateral sacroiliac joint dysfunction, and lumbar spondylosis, and failed back surgery syndrome and lumbar area, patient had more than 50% decrease in the pain level after 2 sacroiliac steroid injections, he will be good candidate to have radiofrequency ablation of the sacroiliac joint, RFA of the L5-S1 dorsal ramus, and RFA of the lateral branches S1/S2/S3 , will start the left side first and wait on doing a right-sided, procedure risk and benefits and alternatives discussed with the patient he agreed with proceeding Time with Patient: Less than 30
== END | disposition home or self-care (01) ==
LOC: PNWHC3 12:09
PROVIDERS: ATTEND Specialist
DX: G89.29 Other chronic pain (principal); M47.816 Spondylosis without myelopathy or radiculopathy, lumbar region; M53.3 Sacrococcygeal disorders, not elsewhere classified; M96.1 Postlaminectomy syndrome, not elsewhere classified
CPT/HCPCS: 99211

== ENCOUNTER 2017-11-03 08:24 | Day surgery (SDC) | payer BC ==
[2017-10-29 09:46] VITALS: BMI 31.4
[2017-11-03 08:42] VITALS: RESP 16; TEMP 97.6
[2017-11-03] MEDS ORDERED: LIDOCAINE 1% 20 ML VIAL (10MG/ML) FOR IV START INTRADERMA ONE (08:49)
[2017-11-03 08:51] LABS: Glucose,Whole Blood 92 mg/dL (75-99)
[2017-11-03] MEDS ORDERED: IV FLUID CONTINUATION 1,000 ML IV ONE (10:01)
[2017-11-03 10:15] VITALS: BP 153/73; PULSE 54
--- NOTE | 2017-11-03 10:57 | FL ---
EXAMINATION TYPE: FL guided pain mgmt statistic DATE OF EXAM: 11/03/2017 FLUOROSCOPY Fluoroscopy time of 54 seconds was used during left-sided radiofrequency block along the sacrum. 4 im age/s document/s the procedure.
--- NOTE | 2017-11-03 20:07 | P.PCN ---
Date of Procedure: 11/03/17 Procedure(s) Performed: PREOPERATIVE DIAGNOSIS: 1-Lumbosacral spondylosis with facet arthropathy without myelopathy. 2-sacroiliac joint dysfunction .3 -failed back surgery syndrome lumbar area Post operative Diagnosis: . Same as preop diagnosis. PROCEDURES: 1- Left radiofrequency thermocoagulation/ablation of the L5 dorsal ramus. 2- Left multi-site radiofrequency thermocoagulation/ablation of the S1, S2, and S3 lateral branchs. The procedure was performed using fluoroscopic guidance during needle placement to assure proper position and maximize safety . ANESTHESIA: LOCAL ANESTHESIA = moderate sedation with intravenous versed 2 mg and Fentanyle 100 mcg and local infiltration with Marcaine 0.5% 8 mL EBL: NONE INDICATION/MEDICAL NECESSITY: History of low back pain secondary to bilateral sacroiliac joint dysfunction, and lumbosacral arthropathy unresponsive to more conservative treatments. The patient reported more than 50% relief of pain symptoms following 2 previous diagnostic blocks with Bupivacaine. PROCEDURE DESCRIPTION: The patient was seen and identified in the preoperative area. Risks, benefits, complications, and alternatives were discussed with the patient. The patient agreed to proceed with the procedure and signed the consent. Vital signs were checked before and after the procedure and they remained stable. Patient ambulated to the procedure room and time out was completed. The patient was placed in the prone position on the procedure table and a pillow was placed under the abdomen to reduce lumbar lordosis. The lumbosacral area was prepped and draped in the usual sterile fashion. Critical pause was taken. L5 Dorsal Ramus RF: Using right oblique fluoroscopy, the junction of the transverse process and the superior articular process of the Left S1 vertebra, which correspond to the fluoroscopic image of the "eye of the Tyrell dog" was identified. Subsequently, a 10-cm 20 -gauge radiofrequency cannula with a 10-mm active tip was advanced under fluoroscopic guidance until contact was made with periosteum. At this level, the Sensory testing of the L5 dorsal ramus was performed at 50 Hz and 0 to 1 volt with production of concordant pain starting at 0.5 volt. Motor stimulation was done at 2.5 Hz with stimulation of mulitifidus muscle contration . No radicular symptoms or paresthesias were produced during the testing. Subsequently, the L5 dorsal ramus was subjected to a radiofrequency ablation at 80 degree celsius for 90 seconds . after 0.5% Bupivacaine 1 ml injected at each level after negative aspirations . S1, S3, and S3 Lateral Branch RF: The lateral margins of the Left S1, S2, and S3 foramina were identified using AP fluoroscopy. Under fluoroscopic guidance, three 10-cm 20 -gauge radiofrequency cannula with a 10-mm active tip were inserted at 8-10 mm peripheral to the posterior S1 foramen, at various locations using clock-face coordinates. The center of the clock was registered at the lateral margin of the foramen. The 9:30, 8:00, and 6:30 oclock positions were used. At this level , the sensory testing of the S1 lateral branch was performed at 50 Hz and 0 to 1 volt at the three levels with production of concordant pain starting at 0.5 volt. Motor stimulation was done at 2.5 Hz. No radicular symptoms or paresthesias were produced during the testing. Subsequently, the S1 lateral branch was subjected to a radiofrequency ablation at a mode of 90 seconds at 80 degrees Celsius at the 3 levels after negative motor and sensory testing and after injecting 0.5 ml of preservative free Bupivacaine 0.5 %. The same procedure was performed at the level of the S2 foramen. For the S3 foramen, only the 9:30 and 8:00 oclock positions were used. Sensory and motor testing followed by radiofrequency ablation were performed as described for the S1 and S2 foramina. The needle was withdrawn intact after each injection. COMPLICATIONS: The patient tolerated the procedure well without any acute complications. DISPOSTION/PLAN: The patient ambulated to the recovery area after the procedure in a stable condition for observation. Patient was reexamined prior to discharge. Patient was observed for 30 minutes in the recovery area and was discharged home, accompanied by an adult, after meeting discharged criteria. Discharge instructions were give to the patient by the staff. Patient was specifically instructed not to drive today and to rest for the rest of the day. The patient will schedule a follow up visit in the clinic in weeks or earlier if needed.
== END 2017-11-03 10:22 | disposition home or self-care (01) ==
LOC: ORPAIN 08:24
PROVIDERS: ATTEND Specialist
DX: M47.817 Spondylosis without myelopathy or radiculopathy, lumbosacral region (principal); M46.1 Sacroiliitis, not elsewhere classified; Z99.89 Dependence on other enabling machines and devices; Z88.8 Allergy status to other drugs, medicaments and biological substances
CPT/HCPCS: 64635; 64640 ×3; J2250; J3301; J3010; 99152; 99153

== ENCOUNTER → 2017-11-13 | Outpatient (CLI) | payer BC ==
[2017-11-13 10:23] LABS: Basophils # (A) 0.1 k/uL (0-0.2); Basophils % (A) 1 %; Eosinophils # (A) 0.1 k/uL (0-0.7); Eosinophils % (A) 2 %; HCT 42.1 % (39.0-53.0); HGB 13.8 gm/dL (13.0-17.5); Lymphocytes # (A) 1.7 k/uL (1.0-4.8); Lymphocytes % (A) 20 %; MCH 28.9 pg (25.0-35.0); MCHC 32.8 g/dL (31.0-37.0); Mean Platelet Volume 7.4; Monocytes # (A) 0.7 k/uL (0-1.0); Monocytes % (A) 8 %; Neutrophils # (A) 5.7 k/uL (1.3-7.7); Neutrophils % (A) 67 %; Platelet Count 341 k/uL (150-450); RBC 4.78 m/uL (4.30-5.90); RDW 15.9 % (11.5-15.5); WBC 8.5 k/uL (3.8-10.6)
[2017-11-13 10:56] LABS: ALT 635 U/L (21-72); AST 508 U/L (17-59); Albumin 4.2 g/dL (3.5-5.0); Alkaline Phosphatase 171 U/L (38-126); Blood Urea Nitrogen 11 mg/dL (9-20); C Reactive Protein 20.1 mg/L (<10.0)
[2017-11-13 12:25] LABS: Erythrocyte Sedimentation Rate 10 mm/hr (0-15)
== END | disposition home or self-care (01) ==
LOC: LABWHC1 09:52
PROVIDERS: ATTEND Internal Medicine Rheumatology
DX: D63.8 Anemia in other chronic diseases classified elsewhere (principal); M25.50 Pain in unspecified joint; N18.9 Chronic kidney disease, unspecified; R77.0 Abnormality of albumin; E80.7 Disorder of bilirubin metabolism, unspecified; M81.0 Age-related osteoporosis without current pathological fracture
CPT/HCPCS: 36415; 82040; 82565; 84075; 84450; 84460; 84520; 85025; 85652; 86140

== ENCOUNTER → 2017-11-20 | Outpatient (CLI) | payer BC ==
[2017-11-20 10:52] LABS: Albumin 4.1 g/dL (3.5-5.0); Bilirubin, Delta 0.4 mg/dL (0.0-0.2); Bilirubin,Unconjugated 0.2 mg/dL (0.0-1.1); Total Bilirubin 0.6 mg/dL (0.2-1.3)
== END | disposition home or self-care (01) ==
LOC: LABWHC1 09:30
PROVIDERS: ATTEND Internal Medicine Rheumatology
DX: E80.7 Disorder of bilirubin metabolism, unspecified (principal); M81.0 Age-related osteoporosis without current pathological fracture; R77.0 Abnormality of albumin; Z79.1 Long term (current) use of non-steroidal anti-inflammatories (NSAID)
CPT/HCPCS: 36415; 82040; 82248; 84075; 84450; 84460

== ENCOUNTER → 2017-11-28 | Outpatient (CLI) | payer BC ==
--- NOTE | 2017-11-28 15:36 | US ---
EXAMINATION TYPE: US abdomen limited DATE OF EXAM: 11/28/2017 COMPARISON: NONE CLINICAL HISTORY: R74.0 elevation of levels of transaminase. Elevated LFT's EXAM MEASUREMENTS: Liver Length: 13.3 cm Gallbladder Wall: 0.2 cm CBD: 0.3 cm Right Kidney: 11.7 x 4.7 x 4.9 cm Pancreas: wnl, tail and portion of head obscured by overlying bowel gas Liver: wnl Gallbladder: wnl Evidence for sonographic Clay's sign: No CBD: wnl Right Kidney: wnl Results called to Dr Moise at time of exam IMPRESSION: Hepatic echotexture remains homogeneous despite abnormal liver enzymes. No sonographic ev idence of cholelithiasis or acute cholecystitis.
[2017-11-28 15:43] LABS: Basophils # (A) 0.1 k/uL (0-0.2); Basophils % (A) 1 %; Eosinophils # (A) 0.2 k/uL (0-0.7); Eosinophils % (A) 2 %; HCT 44.2 % (39.0-53.0); HGB 14.8 gm/dL (13.0-17.5); Lymphocytes % (A) 27 %; MCHC 33.4 g/dL (31.0-37.0); MCV 89.8 fL (80.0-100.0); Mean Platelet Volume 7.1; Monocytes # (A) 0.5 k/uL (0-1.0); Monocytes % (A) 6 %; Neutrophils # (A) 4.5 k/uL (1.3-7.7); Neutrophils % (A) 61 %; Platelet Count 349 k/uL (150-450); RBC 4.93 m/uL (4.30-5.90); RDW 14.9 % (11.5-15.5); WBC 7.3 k/uL (3.8-10.6)
[2017-11-28 15:50] LABS: ALT 123 U/L (21-72); AST 36 U/L (17-59); Blood Urea Nitrogen 12 mg/dL (9-20); Total Bilirubin 0.7 mg/dL (0.2-1.3)
[2017-11-28 15:54] LABS: Partial Thromboplastin Time 22.1 sec (22.0-30.0); Prothrombin Time 10.1 sec (9.0-12.0)
[2017-11-28 19:09] LABS: Thyroid Peroxidase Antibodies <28.0 U/mL (0.0-60.0)
[2017-11-28 20:12] LABS: Hepatitis B Core IgM Non-Reactive (Non-Reactive); Hepatitis B Surface AB- Quant 3.5 mIU/mL; Hepatitis C IgG Antibody Reactive (Non-Reactive)
[2017-12-01 14:17] LABS: Hepatits C Virus RNA Not detected (Not detected); Hepatits C Virus RNA, Quant <12 IU/mL (<12); LOG HCV IU/mL <1.08 (<1.08)
[2017-12-01 14:39] LABS: Hepatitis B Virus DNA Not detected (Not detected); Hepatitis B Virus DNA, Quant <10 IU/mL (<10); Log HBV IU/mL <1.00 (<1.00)
== END | disposition home or self-care (01) ==
LOC: RADUSWWP 13:42
PROVIDERS: ATTEND Internal Medicine Rheumatology
DX: R93.2 Abnormal findings on diagnostic imaging of liver and biliary tract (principal); R74.0 Nonspecific elevation of levels of transaminase and lactic acid dehydrogenase [LDH]; Z79.1 Long term (current) use of non-steroidal anti-inflammatories (NSAID)
CPT/HCPCS: 36415; 76705; 82247; 82565; 83516; 84080; 84450; 84460; 84520; 85025; 85610; 85730; 86376; 86704; 86705; 86706; 86803; 87340; 87517; 87522

== ENCOUNTER 2017-12-03 08:46 | Day surgery (SDC) | payer BC ==
[2017-11-27 12:41] VITALS: BMI 31.4
[2017-12-03 10:15] VITALS: TEMP 97.6
[2017-12-03] MEDS ORDERED: LACTATED RINGERS 1,000 ML IV SCH (10:15)
--- NOTE | 2017-12-03 10:25 | P.PCN ---
Date of Procedure: 12/03/17 Surgeon: Wilbur Valle Description of Procedure: Procedure(s) Performed: PREOPERATIVE DIAGNOSIS: 1. Lumbar Spondylosis with Facet Arthropathy without myelopathy. 2-. Lumber degenerative disc disease POSTOPERATIVE DIAGNOSIS: 1. Lumbar Spondylosis with Facet Arthropathy without myelopathy. 2-. Lumber degenerative disc disease PROCEDURES: Right Radiofrequency thermocoagulation , L3-L4, L4-L5, and L5-S1 medial branch, with fluoroscopic guidance SURGEON: Wilbur Valle MD. ANESTHESIA: Moderate sedation with intravenous versed 2 mg and fentanyl 100 mcg and local infiltration with lidocaine 1% 4 ml EBL: Minimal PROCEDURE INDICATION: The patient with low back pain secondary to lumbar facet arthropathy who had more than 50% relief of her pain with previous diagnostic lumbar medial branch block with bupivacaine. PROCEDURE DESCRIPTION / TECHNIQUE: The patient was seen and identified in the preoperative area. Risks, benefits, complications, including but not limited to risk of infection ,bleeding , allergic reactions to the medications and no complete pain releife , and alternatives were discussed with the patient, the patient agreed to proceed with the procedure and signed the consent. IV was started. Vital signs remained stable throughout the procedure. Patient was taken to the OR and time out was completed. The patient was placed in the prone position on the procedure table. The lumber area was prepped and draped in the usual sterile fashion. . Vital signs were closely monitored during the procedure .IV sedation was used during the procedure to decrease patients anxiety. Using AP and then oblique fluoroscopy, the ``eye of the Tyrell dog corresponding to the connection between the superior and transverse articular processes of the above-mentioned levels were identified, marked, and localized with 1% lidocaine. Subsequently, a 18 [id number] radiofrequency cannula with a 10-mm active tip was advanced guided by fluoroscopy to each of the ``eyes of the Tyrell dog at each site then underwent sensory testing at 50 Hz and 0 to 1 volt and motor testing at 2.5 Hz and 0 to 3 volt with local stimulation, but no radicular symptoms down the legs. Then the sites underwent radiofrequency thermocoagulation at 80 degrees celsius for 90 seconds after injecting 0.5 ml of PF lidocaine 1%. then After the thermocoagulation done , 1 ml of the block solution containing depomedrol 40 mg and 4 ml of maraine 0.5 % was injected at theat each, levels after negative aspiration of CSF and blood and with no paresthesias. Cannulas were retracted while injecting lidocaine 1% until the needle is out.. At the end of the procedure, the skin was cleansed and bandages were applied. COMPLICATIONS: No acute complications. DISPOSITION / PLANS: The patient was placed in a supine position and transferred to the recovery area in a stable condition for observation and was discharged from the recovery room after meeting discharge criteria. Home discharge instructions given to the patient by the staff. The patient was reexamined prior to discharge. He will follow up in the clinic on an as-needed basis..
[2017-12-03] MEDS ORDERED: LIDOCAINE 1% 20 ML VIAL (10MG/ML) FOR IV START INTRADERMA ONE (10:29)
[2017-12-03] MEDS ORDERED: IV FLUID CONTINUATION 550 ML IV ONE (11:17)
--- NOTE | 2017-12-03 11:17 | FL ---
Fluoroscopy INDICATION: Pain FINDINGS: Fluoroscopy time: 2 seconds. Images obtained: 2. IMPRESSIONS: 1. Documentation of fluoroscopy.
[2017-12-03 11:21] VITALS: RESP 18
[2017-12-03 11:29] VITALS: BP 143/66; PULSE 62
== END 2017-12-03 11:45 | disposition home or self-care (01) ==
LOC: ORPAIN 08:46
PROVIDERS: ATTEND Specialist
DX: M47.816 Spondylosis without myelopathy or radiculopathy, lumbar region (principal); M51.36 Other intervertebral disc degeneration, lumbar region; M53.3 Sacrococcygeal disorders, not elsewhere classified; Z95.5 Presence of coronary angioplasty implant and graft; L40.9 Psoriasis, unspecified; Z88.8 Allergy status to other drugs, medicaments and biological substances
CPT/HCPCS: 64640; J2250; J1030; J2001; J3010; 64635; 64636; 99152

== ENCOUNTER → 2017-12-30 | Outpatient (CLI) | payer BC ==
[2017-12-30 10:54] LABS: Albumin 4.1 g/dL (3.5-5.0); Bilirubin, Delta 0.2 mg/dL (0.0-0.2); Bilirubin,Unconjugated 0.4 mg/dL (0.0-1.1); Total Bilirubin 0.6 mg/dL (0.2-1.3); Total Protein 6.6 g/dL (6.3-8.2)
[2017-12-31 15:22] LABS: HCV Quant Log <1.08 (<1.08); HCV Quantitative Result <12 IU/mL (<12)
== END | disposition home or self-care (01) ==
LOC: LABWHC1 09:57
DX: R74.8 Abnormal levels of other serum enzymes (principal); Z86.19 Personal history of other infectious and parasitic diseases
CPT/HCPCS: 36415; 80076; 87522

== ENCOUNTER → 2018-02-06 | Outpatient (CLI) | payer BC ==
[2018-02-06 09:40] LABS: HCT 41.3 % (39.0-53.0); HGB 13.4 gm/dL (13.0-17.5); MCHC 32.4 g/dL (31.0-37.0); MCV 86.3 fL (80.0-100.0); Mean Platelet Volume 6.7; Platelet Count 332 k/uL (150-450); RBC 4.79 m/uL (4.30-5.90); RDW 13.7 % (11.5-15.5)
[2018-02-06 10:40] LABS: Eosinophils # (M) 0.15 k/uL (0-0.7); Lymphocytes # (M) 1.85 k/uL (1.0-4.8); Monocytes # (M) 0.35 k/uL (0-1.0); Neutrophils # (M) 2.65 k/uL (1.3-7.7); Neutrophils % (M) 53 %; Nucleated Red Blood Cells 0 /100 WBC (0-0); Total Cells Counted 100
[2018-02-06 10:54] LABS: ALT 29 U/L (21-72); AST 28 U/L (17-59); Blood Urea Nitrogen 10 mg/dL (9-20); C Reactive Protein <5.0 mg/L (<10.0); Cholesterol 177 mg/dL (<200); Creatine Kinase 78 U/L (55-170); HDL Cholesterol 37 mg/dL (40-60); LDL Cholesterol,Calculated 123 mg/dL (0-99); Triglycerides 83 mg/dL (<150)
[2018-02-06 13:04] LABS: Erythrocyte Sedimentation Rate 8 mm/hr (0-15)
== END | disposition home or self-care (01) ==
LOC: LABWHC1 08:26
PROVIDERS: ATTEND Internal Medicine Interventional Cardiology
DX: M79.1 Myalgia (principal); R42 Dizziness and giddiness; E78.2 Mixed hyperlipidemia; M25.50 Pain in unspecified joint
CPT/HCPCS: 36415; 80061; 82306; 82550; 82565; 84450; 84460; 84520; 85025; 85652; 86140; 87522

== ENCOUNTER → 2018-02-11 | Outpatient (CLI) | payer BC ==
--- NOTE | 2018-02-16 07:08 | ENG ---
ELECTRONYSTAGMOGRAM REPORT VIDEO ELECTRONYSTAGMOGRAPHIC REPORT: AGE: 57 VNG INDICATIONS: 57-year-old male with dizziness spells. VNG FINDINGS: SPONTANEOUS NYSTAGMUS: SACCADES: Saccades shows intact peak velocities, accuracies and latencies. GAZE TEST: Gaze with fixation shows no nystagmus in any of the directions of gaze. SINUSOIDAL TRACKING: Tracking shows no break-ups. OKN TEST: Optokinetic nystagmus shows no significant asymmetry. SARAH-HALLPIKE TEST: Sarah-Hallpike maneuvers could not be completed due to neck pain. POSITION TEST: Static position testing shows no nystagmus in any of the 6 positions tested with eyes open and with vision denied. CALORIC TEST: Caloric testing shows is 0% unilateral caloric weakness. No evidence for vestibulopathy. IMPRESSION: Unremarkable VNG study. MMODL / IJN: [id number] /
== END | disposition home or self-care (01) ==
LOC: NEUROMAIN 06:50
PROVIDERS: ATTEND Psychiatry & Neurology Neurology
DX: H81.90 Unspecified disorder of vestibular function, unspecified ear (principal)
CPT/HCPCS: 92537; 92540

== ENCOUNTER → 2018-03-26 | Outpatient (CLI) | payer BC ==
--- NOTE | 2018-03-26 14:53 | XR ---
Left hand HISTORY: Trauma and pain 3 views of the left hand Bone mineralization relatively maintained, there is some hypertrophic change at the distal interphala ngeal joints specially second and third with some mild joint space loss. Lucency present at the dista l aspect of the proximal phalanx of the third digit may represent geode. Alignment is maintained. Josefina nt space loss present at the carpometacarpal joint of the first digit with some hypertrophic change. No fracture or dislocation. Vascular calcifications noted within the wrist. Possible punctate foreign body within the soft tissues volar to the distal second metacarpal. IMPRESSION: Osteoarthritis. No acute bone abnormality evident. Possible small foreign body.
== END | disposition home or self-care (01) ==
LOC: RADXRMAIN 12:11
DX: M19.042 Primary osteoarthritis, left hand (principal)

== ENCOUNTER → 2018-06-02 | Outpatient (CLI) | payer BC ==
[2018-06-02 11:13] LABS: Basophils % (A) 1 %; Eosinophils # (A) 0.2 k/uL (0-0.7); Eosinophils % (A) 3 %; HCT 43.7 % (39.0-53.0); HGB 14.5 gm/dL (13.0-17.5); Lymphocytes # (A) 1.8 k/uL (1.0-4.8); Lymphocytes % (A) 24 %; MCHC 33.2 g/dL (31.0-37.0); MCV 87.3 fL (80.0-100.0); Mean Platelet Volume 6.7; Monocytes # (A) 0.3 k/uL (0-1.0); Monocytes % (A) 4 %; Neutrophils % (A) 66 %; Platelet Count 317 k/uL (150-450); RBC 5.01 m/uL (4.30-5.90); RDW 13.7 % (11.5-15.5); WBC 7.7 k/uL (3.8-10.6)
[2018-06-02 19:19] LABS: LDL Cholesterol,Calculated 64.4 mg/dL (0.0-131.0); VLDL Calculation 14.6 mg/dL (5.00-40.00)
== END | disposition home or self-care (01) ==
LOC: LABWHC1 09:58
PROVIDERS: ATTEND Internal Medicine Interventional Cardiology
DX: E78.2 Mixed hyperlipidemia (principal); Z79.899 Other long term (current) drug therapy
CPT/HCPCS: 36415; 80061; 82550; 82565; 84450; 84460; 84520; 85025

== ENCOUNTER → 2018-10-20 | Outpatient (CLI) | payer MEDICARE ==
[2018-10-20 12:09] LABS: Basophils % (A) 1 %; Eosinophils # (A) 0.2 k/uL (0-0.7); Eosinophils % (A) 2 %; HGB 14.7 gm/dL (13.0-17.5); Lymphocytes # (A) 1.2 k/uL (1.0-4.8); Lymphocytes % (A) 16 %; MCH 28.3 pg (25.0-35.0); MCHC 33.4 g/dL (31.0-37.0); MCV 84.7 fL (80.0-100.0); Mean Platelet Volume 6.7; Monocytes # (A) 0.4 k/uL (0-1.0); Monocytes % (A) 6 %; Neutrophils # (A) 5.7 k/uL (1.3-7.7); Neutrophils % (A) 73 %; Platelet Count 337 k/uL (150-450); RDW 13.9 % (11.5-15.5); WBC 7.8 k/uL (3.8-10.6)
[2018-10-20 16:50] LABS: Albumin 4.5 g/dL (3.80-4.90); Anion Gap 9.2 mmol/L (4.00-12.00); Calcium 9.5 mg/dL (8.7-10.3); Carbon Dioxide 24.8 mmol/L (21.6-31.8); Potassium 4.3 mmol/L (3.5-5.5)
[2018-10-21 16:22] LABS: Hepatits C Virus RNA Not detected (Not detected); Hepatits C Virus RNA, Quant <12 IU/mL (<12); LOG HCV IU/mL <1.08 (<1.08)
== END | disposition home or self-care (01) ==
LOC: LABWHC1 08:54
PROVIDERS: ATTEND Internal Medicine Rheumatology
DX: M25.50 Pain in unspecified joint (principal); E78.79 Other disorders of bile acid and cholesterol metabolism; Z79.899 Other long term (current) drug therapy
CPT/HCPCS: 36415; 80051; 80061; 82040; 82310; 82565; 84450; 84460; 84520; 85025; 87522

== ENCOUNTER → 2019-02-17 | Outpatient (CLI) | payer MEDICARE ==
[2019-02-17 10:05] LABS: Basophils % (A) 1 %; Eosinophils # (A) 0.1 k/uL (0-0.7); Eosinophils % (A) 2 %; HCT 39.5 % (39.0-53.0); HGB 13.6 gm/dL (13.0-17.5); Lymphocytes # (A) 1.8 k/uL (1.0-4.8); Lymphocytes % (A) 30 %; MCH 29.6 pg (25.0-35.0); MCHC 34.4 g/dL (31.0-37.0); MCV 86.2 fL (80.0-100.0); Mean Platelet Volume 7.1; Monocytes # (A) 0.3 k/uL (0-1.0); Monocytes % (A) 5 %; Neutrophils # (A) 3.6 k/uL (1.3-7.7); Neutrophils % (A) 60 %; Platelet Count 338 k/uL (150-450); RBC 4.58 m/uL (4.30-5.90); RDW 13.8 % (11.5-15.5); WBC 6.1 k/uL (3.8-10.6)
[2019-02-17 18:11] LABS: African American GFR (CKD) 94.4 (60.0-200.0); Albumin 4.2 g/dL (3.80-4.90); Albumin/Globulin Ratio 2.21 (1.60-3.17); Anion Gap 7.7 mmol/L (4.00-12.00); Carbon Dioxide 28.3 mmol/L (21.6-31.8); Globulin 1.9 g/dL (1.6-3.3); LDL Cholesterol,Calculated 62.2 mg/dL (0.0-131.0); Magnesium 1.7 mg/dL (1.5-2.4); Total Bilirubin 0.5 mg/dL (0.3-1.2); Total Protein 6.1 g/dL (6.2-8.2); VLDL Calculation 15.8 mg/dL (5.00-40.00)
== END | disposition home or self-care (01) ==
LOC: LABWHC1 09:05
PROVIDERS: ATTEND Nurse Practitioner Adult Health
DX: I10 Essential (primary) hypertension (principal); E78.5 Hyperlipidemia, unspecified; M25.50 Pain in unspecified joint; Z79.899 Other long term (current) drug therapy
CPT/HCPCS: 36415; 80053; 80061; 83735; 85025

== ENCOUNTER → 2019-04-19 | Outpatient (CLI) | payer MEDICARE ==
--- NOTE | 2019-04-19 10:56 | CT ---
EXAMINATION TYPE: CT angio chest DATE OF EXAM: 04/19/2019 COMPARISON: CTA chest December 20, 2015 HISTORY: Thoracic aortic aneurysm w/o rupture CT DLP: 733.9 mGycm. Automated Exposure Control for Dose Reduction was Utilized. CONTRAST: CTA scan of the thorax is performed without and with IV Contrast, patient injected with 100 mL of Iso humberto 370, pulmonary embolism protocol. Three-D reconstructed images are created on independent worksta tion and reviewed. FINDINGS: LUNGS: The lungs are grossly clear, there is no concerning parenchymal mass or nodule identified. T here is no pleural effusion or pneumothorax seen. Some focal pleural thickening posterolateral right upper lung axial image 30 remains present. The tracheobronchial tree is patent. MEDIASTINUM: There is satisfactory enhancement of the central pulmonary arteries, there is no CT evid ence for pulmonary embolism. There are no greater than 1 cm hilar or mediastinal lymph nodes. No c ardiomegaly or pericardial effusion is seen. Ascending aortic aneurysm of 4.0 cm diameter axial image s 65 is not significantly changed from 2016 CT. [id number] coronary artery calcification is pre sent which is noted marked of underlying coronary artery disease. Suspect distal stent inferiorly axi al image 45. OTHER: Single multilevel spurring in the mid to lower thoracic spine. IMPRESSION: Stable 4.0 cm ascending aortic aneurysm
== END | disposition home or self-care (01) ==
LOC: RADCTMAIN 08:13
PROVIDERS: ATTEND Internal Medicine Interventional Cardiology
DX: I71.2 Thoracic aortic aneurysm, without rupture (principal); Z88.8 Allergy status to other drugs, medicaments and biological substances
CPT/HCPCS: 82565; 84520; 71275; 36415; Q9967

== ENCOUNTER → 2019-12-13 | Outpatient (CLI) | payer MEDICARE ==
[2019-12-13 11:44] LABS: Basophils % (A) 1 %; Eosinophils # (A) 0.1 k/uL (0-0.7); Eosinophils % (A) 2 %; HCT 38.3 % (39.0-53.0); HGB 13.1 gm/dL (13.0-17.5); Lymphocytes # (A) 1.4 k/uL (1.0-4.8); Lymphocytes % (A) 28 %; MCHC 34.1 g/dL (31.0-37.0); Mean Platelet Volume 7.9; Monocytes # (A) 0.4 k/uL (0-1.0); Monocytes % (A) 8 %; Neutrophils % (A) 59 %; Platelet Count 267 k/uL (150-450); RBC 4.21 m/uL (4.30-5.90); RDW 14.2 % (11.5-15.5); WBC 5.1 k/uL (3.8-10.6)
[2019-12-13 13:29] LABS: Erythrocyte Sedimentation Rate 5 mm/hr (0-15)
[2019-12-13 18:20] LABS: Hemoglobin A1C 5.4 % (4.0-6.0)
[2019-12-13 20:12] LABS: ALT 21 U/L (10-49); AST 29 U/L (14-35); African American GFR (CKD) 83.5 (60.0-200.0); Alkaline Phosphatase 89 U/L (41-126); C Reactive Protein <0.4 mg/dL (0.0-0.8); Calcium 9.4 mg/dL (8.7-10.3); Carbon Dioxide 27.7 mmol/L (21.6-31.8); Chloride 109 mmol/L (96-109); Cholesterol 141 mg/dL (0-200); Globulin 2.1 g/dL (1.6-3.3); Glucose 109 mg/dL (70-110); LDL Cholesterol,Calculated 77.2 mg/dL (0.0-131.0); Non-African American GFR(CKD) 72.1 (60.0-200.0); Potassium 4.9 mmol/L (3.5-5.5); Sodium 143 mmol/L (135-145); Total Bilirubin 0.6 mg/dL (0.3-1.2); Total Protein 6.5 g/dL (6.2-8.2)
== END | disposition home or self-care (01) ==
LOC: LABWHC1 09:33
PROVIDERS: ATTEND Internal Medicine Rheumatology
DX: E78.79 Other disorders of bile acid and cholesterol metabolism (principal); M06.4 Inflammatory polyarthropathy; Z79.899 Other long term (current) drug therapy; Z51.81 Encounter for therapeutic drug level monitoring; I25.10 Atherosclerotic heart disease of native coronary artery without angina pectoris; R73.9 Hyperglycemia, unspecified; L40.52 Psoriatic arthritis mutilans
CPT/HCPCS: 36415; 80053; 80061; 83036; 84443; 85025; 85652; 86140

== ENCOUNTER → 2020-04-18 | Outpatient (CLI) | payer MEDICARE ==
--- NOTE | 2020-04-18 12:31 | XR ---
EXAMINATION TYPE: XR cervical spine comp DATE OF EXAM: 04/18/2020 COMPARISON: None HISTORY: Cervicalgia TECHNIQUE: Five-view cervical spine FINDINGS: Some right foraminal narrowing is present C3-4 C4-5 and C6-7. Left foramen are patent. Prev ertebral space is normal. Degenerative disc changes present C5-6. Posterior spinal lamellar line is i ntact. IMPRESSION: 1. Degenerative changes with some right foraminal narrowing discussed above. 2. Degenerative disc changes C5-6
== END | disposition home or self-care (01) ==
LOC: RADXRMAIN 12:02
PROVIDERS: ATTEND Internal Medicine Geriatric Medicine
DX: M48.02 Spinal stenosis, cervical region (principal); M50.322 Other cervical disc degeneration at C5-C6 level; M47.812 Spondylosis without myelopathy or radiculopathy, cervical region
CPT/HCPCS: 72050

== ENCOUNTER → 2020-05-12 | Outpatient (CLI) | payer MEDICARE ==
--- NOTE | 2020-05-12 11:47 | MR ---
EXAMINATION TYPE: MR cervical spine wo/w con DATE OF EXAM: 05/12/2020 COMPARISON: Plain film 04/18/2020 HISTORY: Cervicalgia TECHNIQUE: Multiplanar, multisequence images of the cervical spine were acquired utilizing 9.5 mL intravenous Ga davist gadolinium contrast. Diffusion weighted imaging was performed. C2-C3: No evidence for degenerative disc disease. No disc bulge/herniation or protrusion. No Canal stenosis. Foramina are patent bilaterally. C3-C4: Uncovertebral joint hypertrophy causes mild encroachment on the left neural foramen. No eviden t disc herniation. No significant spinal stenosis. C4-C5: Bilateral uncovertebral joint hypertrophy encroaches minimally on the foramina. No disc hernia tion or significant spinal stenosis. C5-C6: There is a left posterior paracentral broad-based disc bulge causing anterolateral mass effect on the thecal sac, mild to moderate spinal stenosis, likely there is contact the anterior cervical c ord. There is left-sided greater than right foraminal encroachment. C6-C7: No evidence for degenerative disc disease. No disc bulge/herniation or protrusion. No Canal stenosis. Foramina are patent bilaterally. C7-T1: No evidence for degenerative disc disease. No disc bulge/herniation or protrusion. No Canal stenosis. Foramina are patent bilaterally. Cervical segments are intact. There is normal alignment. Cervical spinal cord is of normal signal. Craniovertebral junction relationships are within normal limits. There is spondylosis especially at C5-6 with some associated loss of disc height and signal, minimal anterolisthesis grade 1 C4-5, C6-7 . There is a narrow cervical canal. No abnormal enhancement following contrast administration. IMPRESSION: Degenerative disc disease and foraminal encroachment as described.
== END | disposition home or self-care (01) ==
LOC: RADMRIMAIN 08:08
PROVIDERS: ATTEND Internal Medicine Geriatric Medicine
DX: M50.30 Other cervical disc degeneration, unspecified cervical region (principal)
CPT/HCPCS: 72156; A9585

== ENCOUNTER → 2020-06-27 | Outpatient (CLI) | payer MEDICARE ==
[2020-06-27 10:27] LABS: Basophils # (A) 0.1 k/uL (0-0.2); Basophils % (A) 1 %; Eosinophils # (A) 0.2 k/uL (0-0.7); Eosinophils % (A) 2 %; HCT 38.3 % (39.0-53.0); HGB 12.9 gm/dL (13.0-17.5); Lymphocytes # (A) 1.4 k/uL (1.0-4.8); Lymphocytes % (A) 24 %; MCH 30.6 pg (25.0-35.0); MCHC 33.8 g/dL (31.0-37.0); MCV 90.5 fL (80.0-100.0); Mean Platelet Volume 7.6; Monocytes # (A) 0.5 k/uL (0-1.0); Monocytes % (A) 9 %; Neutrophils # (A) 3.7 k/uL (1.3-7.7); Neutrophils % (A) 62 %; Platelet Count 318 k/uL (150-450); RBC 4.23 m/uL (4.30-5.90); RDW 14.7 % (11.5-15.5)
[2020-06-27 12:19] LABS: Erythrocyte Sedimentation Rate 4 mm/hr (0-15)
[2020-06-27 16:42] LABS: ALT 30 U/L (10-49); AST 32 U/L (14-35); African American GFR (CKD) 93.1 (60.0-200.0); C Reactive Protein <0.4 mg/dL (0.0-0.8); Calcium 10.4 mg/dL (8.7-10.3); Chol/HDL Ratio 3.28; Cholesterol 151 mg/dL (0-200); LDL Cholesterol,Calculated 85.8 mg/dL (0.0-131.0); Non-African American GFR(CKD) 80.3 (60.0-200.0)
== END | disposition home or self-care (01) ==
LOC: LABWHC1 08:46
PROVIDERS: ATTEND Internal Medicine Rheumatology
DX: M25.50 Pain in unspecified joint (principal); Z79.899 Other long term (current) drug therapy; M06.4 Inflammatory polyarthropathy; E78.79 Other disorders of bile acid and cholesterol metabolism
CPT/HCPCS: 36415; 80061; 82040; 82310; 82565; 84450; 84460; 84520; 85025; 85652; 86140

== ENCOUNTER → 2020-07-20 | Outpatient (CLI) | payer MEDICARE ==
--- NOTE | 2020-07-20 18:23 | MR ---
EXAMINATION TYPE: MR lumbar spine wo/w con DATE OF EXAM: 07/20/2020 COMPARISON: 09/05/2016 HISTORY: 60-year-old male Low back pain, burning and numbness in left leg Technique: Multiplanar, multisequence images of the lumbar spine were obtained before and after admin istration of 9.5 mL intravenous Gadavist gadolinium contrast. FINDINGS: Vertebral body heights are preserved. A fixed grade 1 anterolisthesis at L4-L5 with posterior lumbar fusion redemonstrated. Corresponding laminectomy at this level with dorsal decompression of the spina l canal. Vertebral body heights are preserved. No suspicious bone marrow replacement. Mild multilevel degenerative disc disease with desiccated bulging disks at multiple levels. Hypertrophic facet arthropathy is present. Conus medullaris is normal. Partially visualized cyst measuring at least 2.0 cm from the medial left kidney. Otherwise, no prever tebral or paravertebral soft tissue abnormality. At T12-L1 and L1-L2, no spinal canal or foraminal stenosis. At L2-L3, there is hypertrophic facet arthropathy with degenerative grade 1 retrolisthesis and large broad-based disc bulge increased in size from previous. This results in a focal moderate to severe sp inal canal stenosis with a near complete effacement of all of the CSF signal within the thecal sac at this level. There is moderate right neuroforaminal stenosis. More moderate to severe left neuroforam inal stenosis but with enhancing infiltration of the fat within the neuroforamen here. Refer to sagit bubba image 3 and axial image 20. Findings suggest perineural fibrosis. At L3-L4, diffuse disc bulge. Ligamentum flavum thickening. Hypertrophic facet arthropathy. Mild over all spinal canal stenosis. There is moderate right and mild left neuroforaminal stenosis. At L4-L5, fixed grade 1 anterolisthesis. There is diffuse disc bulge here not causing any spinal kodi l stenosis. Ijnr-[id number] bilateral neuroforaminal stenosis. There is some enhancing epidural gran ulation tissue along the laminectomy bed. At L5-S1, laminectomy change. No spinal canal stenosis. Facet arthropathy with a moderate left and mi ld right neuroforaminal stenosis. IMPRESSION: 1. Fixed grade 1 anterolisthesis at the fused L4-L5 level with corresponding laminectomy. Some enhanc ing granulation tissue within the laminectomy bed at this level. Mild to moderate bilateral neurofora carmel stenosis. 2. At L2-L3, there is a new broad-based posterior disc herniation contributing to a focal moderate to severe spinal canal stenosis. Ligamentum flavum thickening and facet arthropathy contributes to a tr tien grade 1 retrolisthesis and moderate right and nxjlglnj-ij-nusvkm left neuroforaminal stenosis. In addition, postcontrast images demonstrate enhancing perineural fibrosis along the exiting left L2 ne rve root at this level. 3. At L3-L4, mild overall narrowing of the spinal canal. Moderate right and mild left neuroforaminal stenosis.
== END | disposition home or self-care (01) ==
LOC: RADMRIMAIN 12:40
PROVIDERS: ATTEND Internal Medicine Geriatric Medicine
DX: M48.061 Spinal stenosis, lumbar region without neurogenic claudication (principal); M51.26 Other intervertebral disc displacement, lumbar region; M43.16 Spondylolisthesis, lumbar region; M47.816 Spondylosis without myelopathy or radiculopathy, lumbar region; L92.8 Other granulomatous disorders of the skin and subcutaneous tissue; M46.06 Spinal enthesopathy, lumbar region; M53.86 Other specified dorsopathies, lumbar region; Z98.890 Other specified postprocedural states
CPT/HCPCS: 72158; A9585

== ENCOUNTER → 2020-08-15 | Outpatient (CLI) | payer MEDICARE ==
[2020-08-15 12:17] LABS: Appearance,Urine Clear (Clear); Bilirubin,Urine Negative (Negative); Blood,Urine Negative (Negative); Color,Urine Yellow; Glucose,Urine (UA) Negative (Negative); Ketones,Urine Negative (Negative); Leukocyte Esterase,Urine Negative (Negative); Nitrite,Urine Negative (Negative); PH, Urine 7.5 (5.0-8.0); Protein,Urine Negative (Negative); Specific Gravity,Urine 1.016 (1.001-1.035); Urobilinogen,Urine <2.0 mg/dL (<2.0)
[2020-08-15 18:22] LABS: INR 0.96 (0.90-1.11); Partial Thromboplastin Time 24.8 sec (23.5-31.0); Prothrombin Time 10.5 sec (9.9-11.9)
[2020-08-15 20:22] LABS: African American GFR (CKD) 93.1 (60.0-200.0); Albumin 4.9 g/dL (3.80-4.90); Albumin/Globulin Ratio 2.88 (1.60-3.17); Anion Gap 7.7 mmol/L (4.00-12.00); Calcium 9.7 mg/dL (8.7-10.3); Carbon Dioxide 28.3 mmol/L (21.6-31.8); Globulin 1.7 g/dL (1.6-3.3); Non-African American GFR(CKD) 80.3 (60.0-200.0); Potassium 3.9 mmol/L (3.5-5.5); Total Bilirubin 0.6 mg/dL (0.3-1.2); Total Protein 6.6 g/dL (6.2-8.2)
[2020-08-15 20:46] LABS: Basophils # (A) 0.05 X 10*3/uL (0.00-0.10); Basophils % (A) 0.9 %; Eosinophils # (A) 0.12 X 10*3/uL (0.04-0.35); Eosinophils % (A) 2.1 %; HCT 40.1 % (39.6-50.0); HGB 13.5 g/dL (13.0-17.0); Lymphocytes # (A) 1.38 X 10*3/uL (0.90-5.00); Lymphocytes % (A) 24.2 %; MCH 29.8 pg (27.0-32.0); MCHC 33.7 g/dL (32.0-37.0); MCV 88.5 fL (80.0-97.0); Mean Platelet Volume 11.5 fL (9.5-12.2); Monocytes # (A) 0.81 X 10*3/uL (0.20-1.00); Monocytes % (A) 14.2 %; Neutrophils # (A) 3.32 X 10*3/uL (1.80-7.70); Neutrophils % (A) 58.2 %; Platelet Count 315 X 10*3/uL (140-440); RBC 4.53 X 10*6/uL (4.40-5.60); RDW 13.1 % (11.5-14.5)
[2020-08-15 23:05] LABS: Hemoglobin A1C 5.3 % (4.0-6.0)
== END | disposition home or self-care (01) ==
LOC: LABWHC1 10:26
DX: M47.816 Spondylosis without myelopathy or radiculopathy, lumbar region (principal)
CPT/HCPCS: 36415; 80053; 81003; 83036; 84134; 85025; 85610; 85730

== ENCOUNTER → 2020-10-12 | Outpatient (CLI) | payer MEDICARE ==
--- NOTE | 2020-10-12 11:28 | XR ---
EXAMINATION TYPE: XR lumbar spine 2 or 3V DATE OF EXAM: 10/12/2020 CLINICAL HISTORY: pain TECHNIQUE: Three views of the lumbar spine are submitted. COMPARISON: 12/03/2016 FINDINGS: Postoperative changes of lumbar laminectomy at L3-4 and L4-5. Pedicular screws at L4-5 with intervert ebral body spacer noted unchanged in appearance from prior study. Metallic stabilizers seen posterior ly at L3. There is no evidence for malalignment. Mild degenerative disc space narrowing is seen at th e remaining levels. IMPRESSION: Postoperative changes as discussed.
== END | disposition home or self-care (01) ==
LOC: RADXRMAIN 10:57
DX: M54.5 Low back pain (principal); Z98.890 Other specified postprocedural states
CPT/HCPCS: 72100

== ENCOUNTER → 2020-11-06 | Outpatient (CLI) | payer MEDICARE ==
[2020-11-06 18:24] LABS: Basophils # (A) 0.05 X 10*3/uL (0.00-0.10); Basophils % (A) 0.8 %; Eosinophils # (A) 0.11 X 10*3/uL (0.04-0.35); Eosinophils % (A) 1.7 %; HCT 36.7 % (39.6-50.0); Lymphocytes # (A) 1.68 X 10*3/uL (0.90-5.00); MCH 29.3 pg (27.0-32.0); MCHC 32.7 g/dL (32.0-37.0); MCV 89.5 fL (80.0-97.0); Mean Platelet Volume 10.6 fL (9.5-12.2); Monocytes # (A) 0.69 X 10*3/uL (0.20-1.00); Monocytes % (A) 10.7 %; Neutrophils # (A) 3.92 X 10*3/uL (1.80-7.70); Neutrophils % (A) 60.5 %; Platelet Count 375 X 10*3/uL (140-440); RDW 15.6 % (11.5-14.5); WBC 6.47 X 10*3/uL (4.50-10.00)
[2020-11-06 19:49] LABS: ALT 20 U/L (10-49); AST 27 U/L (14-35); African American GFR (CKD) 105.7 (60.0-200.0); C Reactive Protein <0.4 mg/dL (0.0-0.8); Calcium 10.1 mg/dL (8.7-10.3); Non-African American GFR(CKD) 91.2 (60.0-200.0)
[2020-11-06 21:06] LABS: Erythrocyte Sedimentation Rate 8 mm/Hr (0-20)
== END | disposition home or self-care (01) ==
LOC: LABWHC1 12:00
PROVIDERS: ATTEND Internal Medicine Rheumatology
DX: M25.50 Pain in unspecified joint (principal); M06.4 Inflammatory polyarthropathy; Z79.899 Other long term (current) drug therapy
CPT/HCPCS: 36415; 82040; 82310; 82565; 84450; 84460; 84520; 85025; 85652; 86140

== ENCOUNTER → 2021-03-17 | Outpatient (CLI) | payer MEDICARE ==
[2021-03-17 17:11] LABS: Basophils # (A) 0.05 X 10*3/uL (0.00-0.10); Basophils % (A) 0.7 %; Eosinophils # (A) 0.12 X 10*3/uL (0.04-0.35); Eosinophils % (A) 1.7 %; HCT 37.7 % (39.6-50.0); HGB 12.7 g/dL (13.0-17.0); Lymphocytes # (A) 1.38 X 10*3/uL (0.90-5.00); MCH 30.8 pg (27.0-32.0); MCHC 33.7 g/dL (32.0-37.0); MCV 91.3 fL (80.0-97.0); Monocytes # (A) 0.64 X 10*3/uL (0.20-1.00); Monocytes % (A) 8.8 %; Neutrophils # (A) 5.05 X 10*3/uL (1.80-7.70); Neutrophils % (A) 69.5 %; Platelet Count 321 X 10*3/uL (140-440); RBC 4.13 X 10*6/uL (4.40-5.60); RDW 13.7 % (11.5-14.5); WBC 7.26 X 10*3/uL (4.50-10.00)
[2021-03-17 19:30] LABS: Erythrocyte Sedimentation Rate 11 mm/Hr (0-20)
[2021-03-18 14:02] LABS: ALT 18 U/L (10-49); AST 26 U/L (14-35); African American GFR (CKD) 93.1 (60.0-200.0); C Reactive Protein <0.4 mg/dL (0.0-0.8); Cholesterol 116 mg/dL (0-200); LDL Cholesterol,Calculated 55.8 mg/dL (0.0-131.0); Non-African American GFR(CKD) 80.3 (60.0-200.0)
== END | disposition home or self-care (01) ==
LOC: LABWHC1 09:53
PROVIDERS: ATTEND Internal Medicine Rheumatology
DX: M25.50 Pain in unspecified joint (principal); M06.4 Inflammatory polyarthropathy; Z79.01 Long term (current) use of anticoagulants
CPT/HCPCS: 36415; 80061; 82565; 84450; 84460; 84520; 85025; 85652; 86140

== ENCOUNTER → 2021-06-21 | Outpatient (CLI) | payer MEDICARE ==
[2021-06-21 15:48] LABS: Basophils # (A) 0.05 X 10*3/uL (0.00-0.10); Basophils % (A) 0.9 %; Eosinophils # (A) 0.15 X 10*3/uL (0.04-0.35); Eosinophils % (A) 2.7 %; HCT 43.1 % (39.6-50.0); Lymphocytes # (A) 1.65 X 10*3/uL (0.90-5.00); Lymphocytes % (A) 29.5 %; MCH 29.5 pg (27.0-32.0); MCHC 32.5 g/dL (32.0-37.0); MCV 90.9 fL (80.0-97.0); Mean Platelet Volume 11.2 fL (9.5-12.2); Monocytes # (A) 0.56 X 10*3/uL (0.20-1.00); Neutrophils # (A) 3.15 X 10*3/uL (1.80-7.70); Neutrophils % (A) 56.4 %; Platelet Count 259 X 10*3/uL (140-440); RBC 4.74 X 10*6/uL (4.40-5.60); RDW 13.1 % (11.5-14.5); WBC 5.59 X 10*3/uL (4.50-10.00)
[2021-06-21 16:14] LABS: % Iron Saturation 16.59 (15.00-50.00); ALT 22 U/L (10-49); AST 28 U/L (14-35); African American GFR (CKD) 95.2 (60.0-200.0); Blood Urea Nitrogen 13.2 mg/dL (9.0-27.0); Iron 69 ug/dL (65-175); Non-African American GFR(CKD) 82.1 (60.0-200.0); Total Iron Binding Capacity 416 ug/dL (228-460)
[2021-06-21 16:23] LABS: C Reactive Protein <0.30 mg/dL (0.00-0.80)
[2021-06-21 17:02] LABS: Erythrocyte Sedimentation Rate 4 mm/Hr (0-20)
== END | disposition home or self-care (01) ==
LOC: LABWHC1 08:51
PROVIDERS: ATTEND Internal Medicine Rheumatology
DX: M06.4 Inflammatory polyarthropathy (principal); D63.0 Anemia in neoplastic disease; Z79.02 Long term (current) use of antithrombotics/antiplatelets
CPT/HCPCS: 36415; 82565; 82607; 82747; 83540; 83550; 84207; 84450; 84460; 84520; 85025; 85652; 86140; 86480

== ENCOUNTER → 2021-11-22 | Outpatient (CLI) | payer MEDICARE ==
[2021-11-22 14:21] LABS: Basophils # (A) 0.05 X 10*3/uL (0.00-0.10); Basophils % (A) 0.6 %; Eosinophils # (A) 0.17 X 10*3/uL (0.04-0.35); Eosinophils % (A) 1.9 %; HCT 41.6 % (39.6-50.0); HGB 13.8 g/dL (13.0-17.0); Immature Grans, Automated 1.5 %; Lymphocytes # (A) 1.61 X 10*3/uL (0.90-5.00); Lymphocytes % (A) 18.2 %; MCH 29.4 pg (27.0-32.0); MCHC 33.2 g/dL (32.0-37.0); MCV 88.7 fL (80.0-97.0); Mean Platelet Volume 11.1 fL (9.5-12.2); Monocytes % (A) 10.2 %; NRBC Per 100 WBC 0 /100 WBCS (0.0-0.0); Neutrophils # (A) 5.98 X 10*3/uL (1.80-7.70); Neutrophils % (A) 67.6 %; Platelet Count 264 X 10*3/uL (140-440); RBC 4.69 X 10*6/uL (4.40-5.60); RDW 13.9 % (11.5-14.5); WBC 8.84 X 10*3/uL (4.50-10.00)
[2021-11-22 15:45] LABS: Erythrocyte Sedimentation Rate 2 mm/Hr (0-20)
[2021-11-22 16:17] LABS: ALT 21 U/L (10-49); AST 18 U/L (14-35); African American GFR (CKD) 83.3 (60.0-200.0); Blood Urea Nitrogen 17.8 mg/dL (9.0-27.0); C Reactive Protein <0.30 mg/dL (0.00-0.80); Non-African American GFR(CKD) 71.9 (60.0-200.0)
[2021-11-22 16:18] LABS: LDL Cholesterol,Calculated 71.6 mg/dL (0.0-131.0); VLDL Calculation 13.06 mg/dL (5.00-40.00)
== END | disposition home or self-care (01) ==
LOC: LABWHC1 08:52
PROVIDERS: ATTEND Internal Medicine Rheumatology
DX: E78.79 Other disorders of bile acid and cholesterol metabolism (principal); M06.4 Inflammatory polyarthropathy
CPT/HCPCS: 36415; 80061; 82565; 84450; 84460; 84520; 85025; 85652; 86140

== ENCOUNTER 2022-01-08 07:56 | Day surgery (SDC) | payer MEDICARE ==
[2022-01-04 13:07] VITALS: BMI 31.4
[~2022-01-08 07:56] MED LIST changes: +LIDOCAINE 1% (10MG/ML) FOR IV START INTRADERMA PRN
[2022-01-08 08:22] VITALS: TEMP 97
[2022-01-08] MEDS ORDERED: MIDAZOLAM 2 MG/2 ML VIAL ONE (08:39)
[2022-01-08] MEDS ORDERED: methylPREDNISolone ACETATE 80 MG/ML 1 ML VIAL ONE ×2 (08:39)
[2022-01-08] MEDS ORDERED: IOPAMIDOL M200 10 ML VIAL ONE (08:39)
[2022-01-08] MEDS ORDERED: fentaNYL (PF) 50 MCG/ML 2 ML AMP ONE (08:39)
--- NOTE | 2022-01-08 08:55 | P.PCN ---
Date of Procedure: 01/08/22 Procedure(s) Performed: PREOPERATIVE DIAGNOSIS: 1- Lumbar Degenerative Disc Diseases 2-Lumbar spondylosis with Facet arthropathy without myelopathy 3-postlaminectomy pain syndrome lumbar area POSTOPERATIVE DIAGNOSIS: Same as preop diagnosis. PROCEDURE 1. Lumbar epidural steroid injection under fluoroscopic guidance at the L3-4 level. (Fluoroscopy imaging was available in radiology department) 2. Lumbar epidurogram. ANESTHESIA: Local with 1% lidocaine 3 ml and , moderate sedation with intravenous Versed 2 mg ,and fentanyle 100 Mcg EBL: Minimal PROCEDURE INDICATION: The patient with low back pain and radiculitis symptoms unresponsive to conservative treatment. Fluoroscopy was used to optimize visualization of the needle placement and to maximize safety. PROCEDURE DESCRIPTION / TECHNIQUE: The patient was seen and identified in the preoperative area. Risks, benefits, complications including but not limited to infections ,bleeding ,allergic reaction to the medications ,nerve damage and not complete pain releife , and alternatives were discussed with the patient. The patient agreed to proceed with the procedure and signed the consent. IV was started, and vital signs were stable. Patient was taken to the OR and time out was completed. The patient was placed in the prone position on procedure table and a pillow was placed under the abdomen to reduce lumbar lordosis. The lumbosacral area was prepped and draped in the usual sterile fashion.ere closely monitored during the procedure. Conscious sedation was used during the procedure to decrease patients anxiety. Vital signs was monitered during the entire procedure. Using anterior-posterior fluoroscopy, the L3-4 interlaminar space was identified and the skin over this site was marked and then infiltrated with 1% lidocaine subcutaneously. Subsequently, a 20-gauge Tuohy epidural needle was inserted and advanced toward the epidural space using the ``Loss of resistance technique and guided by AP and lateral fluoroscopy. The correct needle position in the epidural space was verified with the injection of 2 mL of the water soluble contrast dye Isovue 200 contrast and observing an excellent epidurogram with the epidural spread of the dye, after negative aspiration for blood and CSF and in the absence of paresthesias. Again after negative aspiration, a 6 ml mixture containing 80 mg of Depo-medrol , and 2 ml of preservative free Normal Saline, and 2 ml of preservative free lidocaine 1% solution was injected and a washout of epidurogram was seen. Needle was withdrawn intact, skin was cleansed, and bandages were applied. COMPLICATIONS: None DISPOSITION / PLANS: The patient was placed in a supine position and transferred to the recovery area in a stable condition for observation. There was no evidence of lower extremity motor or sensory deficit after the procedure. Jeanmarie bell was discharged from the recovery room after meeting discharge criteria. Home discharge instructions were given to the patient by the staff. The patient was reexamined prior to discharge. The patient will schedule a follow up in the clinic in 2-4 weeks.
[2022-01-08] MEDS ORDERED: IV FLUID CONTINUATION 700 ML IV ONE (09:01)
[2022-01-08 09:06] VITALS: RESP 16
[2022-01-08 09:18] VITALS: BP 128/77; PULSE 58
--- NOTE | 2022-01-08 09:32 | FL ---
EXAMINATION TYPE: FL guided pain mgmt statistic DATE OF EXAM: 01/08/2022 CLINICAL HISTORY: Lumbar epidural injection TECHNIQUE: Fluoroscopic guided procedure. COMPARISON: X-ray dated 10/12/2020 FINDINGS: Fluoroscopic guidance was provided during the procedure. A total of 2 seconds of fluorosco pic time was utilized during the procedure and 1 spot image was acquired. IMPRESSION: As Above.
== END 2022-01-08 09:34 | disposition home or self-care (01) ==
LOC: ORPAIN 07:56
PROVIDERS: ATTEND Specialist
DX: M51.16 Intervertebral disc disorders with radiculopathy, lumbar region (principal); M47.26 Other spondylosis with radiculopathy, lumbar region; M96.1 Postlaminectomy syndrome, not elsewhere classified; Z88.8 Allergy status to other drugs, medicaments and biological substances
CPT/HCPCS: 62323; J2250; J1040; J3010; Q9966; 99152

== ENCOUNTER → 2022-01-28 | Outpatient (CLI) | payer MEDICARE ==
[2022-01-28 09:11] VITALS: BP 156/74; PULSE 75; RESP 18; TEMP 98.4
--- NOTE | 2022-01-28 14:23 | P.PAINPG ---
Objective - Vital Signs Vital signs: Vital Signs Temp 98.4 F 01/28/22 09:00 Pulse 75 01/28/22 09:00 Resp 18 01/28/22 09:00 BP 156/74 01/28/22 09:00 Pulse Ox 95 01/28/22 09:00 FiO2 Intake & Output 01/27/22 01/28/22 01/28/22 18:59 06:59 18:59 Weight 83.915 kg PQRS Measure Charge Sheet Mode of Arrival: Ambulatory, Cane Comment: A 61 yr old male w at side with a history of severe and chronic low back pain secondary to lumbar degenerative disc diseases and lumbar spondylosis with facet arthropathy presents today for evaluation s/p LESI L3-L4. Pt states he experienced 75% pain relief for 3 weeks s/p procedure. Pain level is currently at 8/10 in intensity, localized in lower back with radiation to BL hips and thighs, constant, sharp/ shooting in character. Pain is provoked by back surgery years ago, standing/walking for periods of 15 min or more, or lifting. Pain is alleviated with PT years ago, daily exercise regimen, heat, ice, medications (Ibuprofen), topicals, use of a cane for ambulation, repositioning and rest. Interventional pain procedures completed include LESI L3-L4 Patient is currently on Ibuprofen Patient denies any side effects of the medication(s), denies excessive drowsiness or sleepiness, denies suicidal ideation and reports that the current pain medication is helping to control the pain and improve activities of daily living. Patient denies any motor or sensory deficits. Patient denies any fever or night sweats, denies any change in the bowel movements or urination. Physical Examination: -Constitutional: Cooperative. Not in acute distress . - Neurologic: Cranial nerve II to XII intact. No focal neurological deficits. - Psychatric: Alert & oriented x 3. Matching mood & appropriate affect. Judgment and insight intact. - Musculoskeletal: Cervical spine: Muscle bulk/ tone/ strength in the bilateral upper extremities normal Vertebral body tenderness to palpation over Spurling test positive Distraction test positive Facet loading test positive Thoracic spine Muscle bulk / tone/ strength in the bilateral paraspinal muscles normal Vertebral body tender to palpation over Facet loading test positive Lumbar spine: Motor bulk/ tone/ strength lower extremities , thigh and legs : 5/5 Deep tendon reflexes : Normal Knee Jerk. Normal Ankle Jerk . Vertebral body tenderness to palpation over L4, L5 Lumbar Facet Loading Test positive Straight Leg Raise: positive at 30 degrees right side/ left side Gaenslen's Test positive Sacral spine : Severe tenderness over the Sacroiliac joint: right side / left side Range of motion: Flexion of the lumbar spine <60 degrees Range of motion: Extension of the lumbar spine <20 degrees Gaenslen's Test positive Rene's Test positive Santi test: positive right side / left side Thigh Thrust Test Sacral Thrust Test Assessment and plan: Chronic low back pain secondary to lumbar degenerative disc disease , lumbar spondylosis with facet arthropathy without myelopathy Recommendation of LESI L4-L5. May need a series of injections, up to 3 within a 6 mo period,for optimal pain relief. Risks, benefits of procedure discussed and pt verbalized understanding. Admits to anticoagulant use and denies medical history of diabetes. All patient questions answered MAPS reviewed and it was appropriate. I have spent less than 30 minutes on patient care today. Dr Beckman was available by phone for the evaluation of this patient. The time was used to review the medical records including relevant urine studies and Prescription history (MAPs), review of the available imaging, evaluation and examination of the patient, coordination of care with the medical staff and if applicable referring physicians, as well as creation of the medical record - Pain Location Bilateral Lower Back Non-Pharmacological Interventions: Heat, Home Exercise, Ice, Sitting, Stretching Pharmacological Interventions: Epidural, PRN Medication, Topical Medication PQRS Narrative: Smoking Status Former smoker Blood Pressure 156/74 Pain Intensity [Bilateral 8 Lower Back] Scale Used Numeric (1 - 10) Hx Alcohol Use (MH) Yes: SOCIAL Home Medications: Ambulatory Orders Aspirin [Adult Low Dose Aspirin EC] 81 mg PO DAILY 07/10/15 Ezetimibe [Zetia] 10 mg PO DAILY 07/10/15 Ibuprofen [Motrin] 800 mg PO DAILY PRN 11/25/16 Citalopram Hydrobromide [CeleXA] 20 mg PO HS 06/23/17 Esomeprazole Magnesium [NexIUM 24Hr] 20 mg PO DAILY 06/23/17 Folic Acid 1 mg PO DAILY 06/23/17 Atorvastatin Calcium [Lipitor] 1 tab PO DAILY 11/29/21 Isosorbide Mononitrate ER [Imdur] 30 mg PO DAILY 01/04/22 Leflunomide [Arava] 20 mg PO DAILY 01/04/22 Pregabalin 100 mg PO BID 01/04/22 Upadacitinib [Rinvoq] 15 mg PO DAILY 01/04/22 Valsartan/Hydrochlorothiazide [Valsartan-Hctz 320-12.5 mg Tab] 1 each PO DAILY 01/04/22 carvediloL [Coreg] 6.25 mg PO BID 01/04/22 Controlled Substance Measures - Controlled Substance Measures Is patient prescribed a controlled substance at discharge?: No
== END ==
LOC: PNWHC3 08:44
PROVIDERS: ATTEND Specialist
DX: M51.36 Other intervertebral disc degeneration, lumbar region (principal); M47.816 Spondylosis without myelopathy or radiculopathy, lumbar region; G89.29 Other chronic pain; Z87.891 Personal history of nicotine dependence; Z88.8 Allergy status to other drugs, medicaments and biological substances
CPT/HCPCS: 99211

== ENCOUNTER → 2022-03-20 | Outpatient (CLI) | payer MEDICARE ==
[2022-03-20 08:39] VITALS: BP 146/81; PULSE 61; RESP 16; TEMP 97.8
== END | disposition home or self-care (01) ==
LOC: PNWHC3 08:17
PROVIDERS: ATTEND Specialist
DX: M54.16 Radiculopathy, lumbar region (principal)
CPT/HCPCS: 99211

== ENCOUNTER → 2022-03-20 | Outpatient (CLI) | payer MEDICARE ==
--- NOTE | 2022-03-20 10:04 | P.PN ---
Subjective Progress Note Date: 03/20/22 This is follow visit for this patient with a history of severe chronic low back pain, patient diagnosed with postlaminectomy pain syndrome lumbar area, lumbar degenerative disc disease and lumbar spondylosis with lumbar facet arthropathy, patient had lumbar epidural steroid injections 2 he had some benefits from the injections, he continued to have some back pain and he feels some weakness in his lower extremity bilaterally the pain is more prominent on the left side, and radiated from the back towards the anterior aspect of both thighs, he denies any fever or night sweats with he denies any change in the bowel movement or urination, patient done physical therapy in the past, , daily exercise regimen, heat, ice, medications (Ibuprofen), topicals, use of a cane for ambulation, repositioning and rest. Interventional pain procedures completed include LESI L3-L4 and L45 Patient is currently on Ibuprofen Patient denies any side effects of the medication(s), denies excessive drowsiness or sleepiness, denies suicidal ideation and reports that the current pain medication is helping to control the pain and improve activities of daily living. Patient denies any motor or sensory deficits. Patient denies any fever or night sweats, denies any change in the bowel movements or urination. Physical Examinations : -Constitutiona : Cooperative , not in acute distress . -HEENT : nech : supple , no Lymphadenopathy , normal thyroid size . : eyes : no ptosis , no icterus, no photophobia . - neurologic : Cranial nerve II to XII intact , no focal neurological deffecit . -psychatric : alert , oriented X 3 , appropriate affect , intact judgment and insight . -Lymphatic : no Lymphadenopathy . - musculoskeltal : Lumber spine moter stegnth lower extremities ,thigh and legs 5/5 Right side , 5/5 Left side deep tendon reflexes : normal Knee Jerk , normal ankle Jerk lumber facet Loading Test =positive Right , positive Left Range of motion of the lumbar spine Flexion 30 degrees, extension 10 degrees strait leg raising test = positive at 30 degree Fabere test= positive Right , and positive LT . Sever tenderness over the Sacroiliac joint on the Right , and Left sides Gaenslen test= positive right ,and positive left . Seated flexion test= positive right ,and positive Left . Distraction test= positive bilaterally Sacroiliac compression test= positive bilaterally MRI of the lumbar spine = fusion at L4 5 , foraminal stenosis at L3 4 which is severe , L2-3 disc herniation . Assessment and plan = 1-lumbar radiculopathy . 2-lumbar foraminal stenosis . 3-Failed Back surgery syndrome lumbar area . 4-lumbar spondylosis . Patient could benefit from bilateral transforaminal epidural steroid injection at L2-3 . patient could benefit from physical therapy/chiropractic , referral was given
[2022-03-20 14:16] LABS: Basophils # (A) 0.03 X 10*3/uL (0.00-0.10); Basophils % (A) 0.4 %; Eosinophils # (A) 0.12 X 10*3/uL (0.04-0.35); Eosinophils % (A) 1.4 %; HGB 12.2 g/dL (13.0-17.0); Immature Grans, Automated 0.5 %; Lymphocytes % (A) 10.7 %; MCH 30.6 pg (27.0-32.0); MCHC 33.9 g/dL (32.0-37.0); MCV 90.2 fL (80.0-97.0); Mean Platelet Volume 11.2 fL (9.5-12.2); Monocytes # (A) 0.82 X 10*3/uL (0.20-1.00); Monocytes % (A) 9.7 %; NRBC Per 100 WBC 0 /100 WBCS (0.0-0.0); Neutrophils # (A) 6.53 X 10*3/uL (1.80-7.70); Neutrophils % (A) 77.3 %; Platelet Count 246 X 10*3/uL (140-440); RBC 3.99 X 10*6/uL (4.40-5.60); RDW 13.7 % (11.5-14.5); WBC 8.44 X 10*3/uL (4.50-10.00)
[2022-03-20 15:03] LABS: African American GFR (CKD) 103.7 (60.0-200.0); Blood Urea Nitrogen 14.4 mg/dL (9.0-27.0); C Reactive Protein 0.4 mg/dL (0.00-0.80); Non-African American GFR(CKD) 89.5 (60.0-200.0)
[2022-03-20 15:54] LABS: Erythrocyte Sedimentation Rate 1 mm/Hr (0-20)
== END | disposition home or self-care (01) ==
LOC: LABWHC1 09:12
PROVIDERS: ATTEND Internal Medicine Rheumatology
DX: M25.50 Pain in unspecified joint (principal); M06.4 Inflammatory polyarthropathy
CPT/HCPCS: 36415; 82565; 84450; 84460; 84520; 85025; 85652; 86140

== ENCOUNTER → 2022-03-29 | Outpatient (CLI) | payer MEDICARE ==
--- NOTE | 2022-03-30 03:06 | MR ---
EXAMINATION TYPE: MR lumbar spine wo/w con DATE OF EXAM: 03/29/2022 COMPARISON: 07/20/2020 HISTORY: Low back pain, BLE radiculopathy, worse on left. History of surgery. CONTRAST: Standard multiplanar, multisequence MRI departmental protocol images were obtained without contrast a nd with 9 mL intravenous Gadavist gadolinium contrast. There is posterior fusion surgery with metal artifact at the L4-5 level. On the T2 and FLAIR images t here is abnormal increased signal in the L3 and L2 vertebral bodies with severe narrowing of the L2-3 disc space. This is a change compared to the old exam. Bone edema and slight increased fluid signal in the narrowed disc raising the possibility of discitis. There is a mild L4-5 subluxation of 3 mm. This appears stable compared to old exam. There is abnormal mixed signal along the posterior longitudinal ligament at the L2 and L3 level. There is narrowing of the spinal canal. This could be a large extruded sequestered disc herniation from the L2-3 disc. The re appears to be some mild paraspinal enhancement at the L2-3 level. This is more on the left side. IMPRESSION: There is evidence for a very large posterior sequestered disc herniation along the posterior aspect o f the L3 vertebral body in the midline and towards the left side which is a change compared to the ol d exam. There is some paraspinal enhancement on the left side more than the right that could be infla mmatory process and phlegmon. There is edema on both sides of the L 2 3 disc and discitis and osteomy elitis is possible. Follow-up recommended.
== END | disposition home or self-care (01) ==
LOC: RADMRIMAIN 13:37
PROVIDERS: ATTEND Internal Medicine Geriatric Medicine
DX: M46.06 Spinal enthesopathy, lumbar region (principal)
CPT/HCPCS: 72158; A9585

== ENCOUNTER → 2022-05-03 | Outpatient (CLI) | payer MEDICARE ==
[2022-05-03 12:18] LABS: Partial Thromboplastin Time 23.3 sec (22.0-30.0); Prothrombin Time 10.6 sec (9.0-12.0)
[2022-05-03 17:47] LABS: Basophils # (A) 0.05 X 10*3/uL (0.00-0.10); Basophils % (A) 0.7 %; Eosinophils # (A) 0.15 X 10*3/uL (0.04-0.35); HGB 12.7 g/dL (13.0-17.0); Immature Grans, Automated 0.4 %; Lymphocytes % (A) 12.2 %; MCH 30.3 pg (27.0-32.0); MCHC 34.3 g/dL (32.0-37.0); MCV 88.3 fL (80.0-97.0); Mean Platelet Volume 10.7 fL (9.5-12.2); Monocytes # (A) 0.84 X 10*3/uL (0.20-1.00); Monocytes % (A) 11.4 %; NRBC Per 100 WBC 0 /100 WBCS (0.0-0.0); Neutrophils # (A) 5.38 X 10*3/uL (1.80-7.70); Neutrophils % (A) 73.3 %; Platelet Count 308 X 10*3/uL (140-440); RBC 4.19 X 10*6/uL (4.40-5.60); RDW 13.2 % (11.5-14.5); WBC 7.35 X 10*3/uL (4.50-10.00)
[2022-05-03 18:06] LABS: African American GFR (CKD) 91.8 (60.0-200.0); Albumin 4.4 g/dL (3.8-4.9); Albumin/Globulin Ratio 2.32 (1.60-3.17); Anion Gap 9.1 mmol/L (10.00-18.00); BUN/Creat Ratio 10.6 Ratio (12.00-20.00); Blood Urea Nitrogen 10.6 mg/dL (9.0-27.0); Calcium 9.4 mg/dL (8.7-10.3); Carbon Dioxide 27.9 mmol/L (20.0-27.5); Globulin 1.9 g/dL (1.6-3.3); Non-African American GFR(CKD) 79.2 (60.0-200.0); Potassium 3.9 mmol/L (3.5-5.5); Prealbumin 30.8 mg/dL (18.0-42.0); Total Bilirubin 0.5 mg/dL (0.30-1.20); Total Protein 6.3 g/dL (6.2-8.2)
[2022-05-03 21:39] LABS: Appearance,Urine Clear (Clear); Bilirubin,Urine Negative (Negative); Blood,Urine Negative (Negative); Color,Urine Dark Yellow (Yellow); Ketones,Urine Trace mg/dL (Negative); Nitrite,Urine Negative (Negative); Specific Gravity,Urine 1.024 (1.001-1.030)
[2022-05-03 21:50] LABS: Bacteria,Urine None Seen /HPF (None Seen)
== END | disposition home or self-care (01) ==
LOC: LABWHC1 11:22
DX: Z01.812 Encounter for preprocedural laboratory examination (principal)
CPT/HCPCS: 36415; 80053; 81001; 83036; 84134; 85025; 85610; 85730; 87070

== ENCOUNTER → 2022-06-11 | Outpatient (CLI) | payer MEDICARE ==
--- NOTE | 2022-06-11 12:30 | XR ---
EXAMINATION TYPE: XR lumbar spine 2 or 3V DATE OF EXAM: 06/11/2022 CLINICAL HISTORY: Status post L2 fusion TECHNIQUE: Weightbearing Frontal and lateral images of the lumbar spine are obtained. COMPARISON: Lumbar spine x-ray October 12, 2020 FINDINGS: Hypoplastic bilateral T12 ribs redemonstrated. New left-sided fusion hardware L2-L5 levels and right-sided fusion hardware L2-L4 levels. Metallic disc material L3-L4 level. Stable metallic cage L4-L5 level. Posterior laminectomy defects a nd spinous process resection L2-L5 levels redemonstrated. Moderate to severe disc space narrowing and endplate sclerosis L2-L3 level more prominent from prior. Slight grade 1 retrolisthesis of L2 on L3 is stable. Moderate overlying arterial vascular calcification redemonstrated. IMPRESSION: As above.
== END | disposition home or self-care (01) ==
LOC: RADXRMAIN 11:45
DX: M51.36 Other intervertebral disc degeneration, lumbar region (principal); M43.26 Fusion of spine, lumbar region
CPT/HCPCS: 72100

== ENCOUNTER → 2022-06-12 | Outpatient (CLI) | payer MEDICARE ==
[2022-06-12 15:03] LABS: Basophils # (A) 0.07 X 10*3/uL (0.00-0.10); Basophils % (A) 0.9 %; Eosinophils # (A) 0.28 X 10*3/uL (0.04-0.35); Eosinophils % (A) 3.7 %; HCT 36.2 % (39.6-50.0); Immature Grans, Automated 0.5 %; Lymphocytes % (A) 17.3 %; MCH 28.9 pg (27.0-32.0); MCHC 33.1 g/dL (32.0-37.0); MCV 87.2 fL (80.0-97.0); Mean Platelet Volume 10.4 fL (9.5-12.2); NRBC Per 100 WBC 0 /100 WBCS (0.0-0.0); Neutrophils # (A) 5.24 X 10*3/uL (1.80-7.70); Neutrophils % (A) 69.6 %; Platelet Count 445 X 10*3/uL (140-440); RBC 4.15 X 10*6/uL (4.40-5.60); WBC 7.53 X 10*3/uL (4.50-10.00)
[2022-06-12 15:40] LABS: Erythrocyte Sedimentation Rate 8 mm/Hr (0-20)
[2022-06-12 15:57] LABS: Chol/HDL Ratio 2.93 Ratio; LDL Cholesterol,Calculated 76.7 mg/dL (0.0-131.0); VLDL Calculation 16.16 mg/dL (5.00-40.00)
[2022-06-12 16:08] LABS: ALT 17 U/L (10-49); AST 26 U/L (14-35); African American GFR (CKD) 94.9 (60.0-200.0); Blood Urea Nitrogen 12.6 mg/dL (9.0-27.0); C Reactive Protein <0.30 mg/dL (0.00-0.80); Non-African American GFR(CKD) 81.9 (60.0-200.0)
== END | disposition home or self-care (01) ==
LOC: LABWHC1 10:27
PROVIDERS: ATTEND Internal Medicine Rheumatology
DX: M25.50 Pain in unspecified joint (principal); M06.4 Inflammatory polyarthropathy; E78.79 Other disorders of bile acid and cholesterol metabolism
CPT/HCPCS: 36415; 80061; 82565; 84450; 84460; 84520; 85025; 85652; 86140

== ENCOUNTER 2022-09-23 11:18 | Emergency (ER) | payer MEDICARE ==
[2022-09-23] MEDS ORDERED: SODIUM CHLORIDE 0.9% 500 ML 500 ML IV STA (12:02)
[2022-09-23 12:03] LABS: Glucose,Whole Blood 99 mg/dL (70-110)
[2022-09-23 12:34] LABS: Basophils # (A) 0.1 k/uL (0-0.2); Basophils % (A) 1 %; Eosinophils # (A) 0.1 k/uL (0-0.7); Eosinophils % (A) 0 %; HCT 40.5 % (39.0-53.0); HGB 13.9 gm/dL (13.0-17.5); Lymphocytes # (A) 1.3 k/uL (1.0-4.8); Lymphocytes % (A) 11 %; MCH 29.3 pg (25.0-35.0); MCHC 34.3 g/dL (31.0-37.0); MCV 85.6 fL (80.0-100.0); Mean Platelet Volume 8.1; Monocytes # (A) 1.1 k/uL (0-1.0); Monocytes % (A) 9 %; Neutrophils # (A) 8.8 k/uL (1.3-7.7); Neutrophils % (A) 76 %; Platelet Count 347 k/uL (150-450); RBC 4.74 m/uL (4.30-5.90); RDW 14.2 % (11.5-15.5); WBC 11.6 k/uL (3.8-10.6)
[2022-09-23 12:44] LABS: ALT 23 U/L (4-49); AST 23 U/L (17-59); African American GFR (CKD) >90 (>60 ml/min/1.73 sqM); Albumin 4.3 g/dL (3.5-5.0); Alkaline Phosphatase 120 U/L (38-126); Anion Gap 9 mmol/L; Blood Urea Nitrogen 17 mg/dL (9-20); Calcium 9.5 mg/dL (8.4-10.2); Carbon Dioxide 26 mmol/L (22-30); Chloride 105 mmol/L (98-107); Glucose 93 mg/dL (74-99); Non-African American GFR(CKD) >90 (>60 ml/min/1.73 sqM); Potassium 3.7 mmol/L (3.5-5.1); Sodium 140 mmol/L (137-145); Total Bilirubin 0.5 mg/dL (0.2-1.3); Total Protein 6.7 g/dL (6.3-8.2)
[2022-09-23 12:46] LABS: Prothrombin Time 10.4 sec (9.0-12.0)
--- NOTE | 2022-09-23 12:48 | ED ---
General Adult HPI - General Chief complaint: Neuro Symptoms/Deficit Stated complaint: neuro issues - poss seizure Time Seen by Provider: 09/23/22 11:55 Source: patient, family, RN notes reviewed, old records reviewed Mode of arrival: ambulatory Limitations: no limitations - History of Present Illness Initial comments: Patient is a 62-year-old male who presents emergency department over concern for what sounds like a near syncopal episode. Family is concerned for possible stroke. Patient was playing with granddaughter on the ground when he states t hat his vision began to go and he became lightheaded. Family states he slumped to his right. He states he did not pass out as he could hear them but cannot respond. This passed on its own. They present for further evaluation approximately one hour after this episode. Patient has a history of hy pertension, hyperlipidemia. No other acute complaints at this time. States he is back to his baseline. Has no acute complaints. Denies chest pain, shortness of breath, abdominal pain, nausea, vomiting. Has no other acute complaints at this time. Presents for further evaluation at this time. Did not bite his tongue. Did not loose his bowels or urinary incontinence. No history of seizures.Patient denies being on blood thinners. Denies any trauma. States he has recently seen an eye doctor was evaluated for his eyes as this has happened previously and workup was normal. Currently is asymptomatic. - Related Data Home Medications Medication Instructions Recorded Confirmed Aspirin [Adult Low Dose Aspirin EC] 81 mg PO DAILY 07/10/15 03/20/22 Ezetimibe [Zetia] 10 mg PO DAILY 07/10/15 03/20/22 Citalopram Hydrobromide [CeleXA] 20 mg PO HS 06/23/17 03/20/22 Isosorbide Mononitrate ER [Imdur] 30 mg PO DAILY 01/04/22 03/20/22 Leflunomide [Arava] 20 mg PO DAILY 01/04/22 03/20/22 Valsartan/Hydrochlorothiazide 1 each PO DAILY 01/04/22 03/20/22 [Valsartan-Hctz 320-12.5 mg Tab] carvediloL [Coreg] 6.25 mg PO BID 01/04/22 03/20/22 Atorvastatin [Lipitor] 20 mg PO DAILY 02/26/22 03/20/22 Tofacitinib Citrate [Xeljanz Xr] 11 mg PO DAILY 02/26/22 03/20/22 Azithromycin [Zithromax Z Pack] See Taper PO DIRECTED 09/23/22 09/23/22 DULoxetine HCL [Cymbalta] 30 mg PO DAILY 09/23/22 09/23/22 methylPREDNISolone Dose Pack See Taper PO DIRECTED 09/23/22 09/23/22 [Medrol Dose Pack] Allergies Allergy/AdvReac Type Severity Reaction Status Date / Time atorvastatin calcium AdvReac muscle pain Verified 09/23/22 13:55 [From Lipitor] Review of Systems ROS Statement: Those systems with pertinent positive or pertinent negative responses have been documented in the HPI. Review of Systems: CONST: Denies fever EYES: Denies blurry vision ENT: Denies nasal congestion C/V: Denies Chest pain RESP: Denies shortness of breath GI: Denies abdominal pain : Denies dysuria SKIN: Denies rash. MSK: Denies joint pain. NEURO: Denies headache ROS Other: All systems not noted in ROS Statement are negative. 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 History of Any Multi-Drug Resistant Organisms: None Reported Past Surgical History: Back Surgery, Heart Catheterization With Stent, Orthopedic Surgery Additional Past Surgical History / Comment(s): LEFT KNEE ARTHROSCOPY, EGD WITH DILATION, Back surgery x2-FUSION OF S1-L5, CAGE, L4, one cardiac stent., pain clinic procedures. Past Anesthesia/Blood Transfusion Reactions: No Reported Reaction Date of Last Stent Placement:: 2015 Past Psychological History: Depression Smoking Status: Current every day smoker Past Alcohol Use History: Occasional Past Drug Use History: None Reported - Past Family History Father Family Medical History: Cancer Mother Family Medical History: Cancer Additional Family Medical History / Comment(s): SKIN General Exam - General Exam Comments Initial Comments: General: Appears in no acute distress. HEAD: Normal with no signs of head trauma. EYES: PERRLA, EOMI, conjunctiva normal, no discharge. Pupils 3 mm equal bilaterally. ENT: Hearing grossly intact, normal oropharynx. RESPIRATORY: Clear breath sounds bilaterally. No wheezes, rales, or rhonchi. C/V: Regular rate and rhythm. S1 and S2 auscultated, no edema, peripheral pulses 2+ and intact throughout ABD: Abd is soft, nontender, nondistended EXT: Normal range of motion, no obvious deformity SKIN: No rashes or lesions observed on exposed skin. NEURO: Alert and oriented x 4. Cranial nerves II-XII intact. No focal sensory or strength deficits. GCS of 15. NIH of 0. Cerebellar function intact as evident by normal finger to nose testing and [id number] testing. Limitations: no limitations Course Vital Signs 09/23/22 09/23/22 11:36 13:56 Temperature 99 F 97.7 F Pulse Rate 70 56 L Respiratory 20 19 Rate Blood Pressure 168/93 172/99 O2 Sat by Pulse 97 96 Oximetry Medical Decision Making - Medical Decision Making Was pt. sent in by a medical professional or institution (, PA, PHOTOGRAPH RETOUCHER, urgent ca re, hospital, or group home...) When possible be specific @ -No Did you speak to anyone other than the patient for history (EMS, parent, family, police, friend...)? What history was obtained from this source @ -No Did you review nursing and triage notes (agree or disagree)? Why? @ -I reviewed and agree with nursing and triage notes Were old charts reviewed (outside hosp., previous admission, EMS record, old EKG, old radiological studies, urgent care reports/EKG's, group home records)? Report findings @ -Old charts reviewed from July 2015 for comparison. This includes EKG. Differential Diagnosis (chest pain, altered mental status, abdominal pain women, abdominal pain men, vaginal bleeding, weakness, fever, dyspnea, syncope, hea dache, dizziness, GI bleed, back pain, seizure, CVA, palpatations, mental health, musculoskeletal)? @ -Near-syncopal episode, TIA, dehydration, infection, ACS. This list is not a ll-inclusive. EKG interpreted by me (3pts min.). @ -As above X-rays interpreted by me (1pt min.). @ -Shows no obvious acute cardio pulmonary process. CT interpreted by me (1pt min.). @ -Reports reviewed. Brain CT shows no obvious acute intracranial process. CT angiogram of the head reveals no acute critical stenosis or other acute process seen. U/S interpreted by me (1pt. min.). @ -None done What testing was considered but not performed or refused? (CT, X-rays, U/S, labs)? Why? @ -None What meds were considered but not given or refused? Why? @ -None Did you discuss the management of the patient with other professionals (professionals i.e. , PA, PHOTOGRAPH RETOUCHER, lab, RT, psych nurse, social insurance specialist, consumer insight analyst, teacher, chief school finance officer, business case analyst)? Give summary @ -No Was smoking cessation discussed for >3mins.? @ -No Was critical care preformed (if so, how long)? @ -No Were there social determinants of health that impacted care today? How? (Homelessness, low income, unemployed, alcoholism, drug addiction, transportation, low edu. Level, literacy, decrease access to med. care, residential, rehab)? @ -No Was there de-escalation of care discussed even if they declined (Discuss DNR or withdrawal of care, Hospice)? DNR status @ -No What co-morbidities impacted this encounter? (DM, HTN, Smoking, COPD, CAD, Cancer, CVA, ARF, Chemo, Hep., AIDS, mental health diagnosis, sleep apnea, morbid obesity)? @ -None Was patient admitted / discharged? Hospital course, mention meds given and route, prescriptions, significant lab abnormalities, going to OR and other pertinent info. @ -Based on the patient's presentation and physical exam, he presents concerned for what sounds like a near syncopal episode but family is concerned for seizure versus possible stroke. Is a symptomatic now. Symptoms all resolved. Vital signs within acceptable limits. Work the patient up for stroke. He was in agreement this plan.NIH is 0. Patient's vital signs within acceptable limits. Imaging is within normal limits. Negative for Covid, flu, RSV, troponin is undetectable. On reevaluation, patient remains a symptomatic care we discussed his results. What sounds like is a possible near-syncopal episode, however either way patient is asymptomatic at this time. No obvious findings on workup. I did offer observation admission however patient is agreement for discharge home and will return if anything worsens. Will follow up with PCP as needed. They were in agreement with this plan. I instructed the patient to follow up with their PCP in the next 1-3 days. I explained that the patient should return to the emergency department if they experience any worsening symptoms. Strict return precautions were discussed with the patient. The patient expressed understanding of these instructions. I answered all questions that the patient had. The patient was discharged home in good condition with their prescriptions and follow up information. Undiagnosed new problem with uncertain prognosis? @ -No Drug Therapy requiring intensive monitoring for toxicity (Heparin, Nitro, Insulin, Cardizem)? @ -No Were any procedures done? @ -No Diagnosis/symptom? @ -Near-syncope Acute, or Chronic, or Acute on Chronic? @ -Acute Uncomplicated (without systemic symptoms) or Complicated (systemic symptoms)? @ -Uncomplicated Side effects of treatment? @ -No Exacerbation, Progression, or Severe Exacerbation? @ -No Poses a threat to life or bodily function? How? (Chest pain, USA, LA, pneumonia, PE, COPD, DKA, ARF, appy, cholecystitis, CVA, Diverticulitis, Homicidal, Suicidal, threat to staff... and all critical care pts) @ -No - Lab Data Result diagrams: 09/23/22 12:08 09/23/22 12:08 Lab Results 09/23/22 09/23/22 09/23/22 Range/Units 12:02 12:08 12:08 WBC 11.6 H (3.8-10.6) k/uL RBC 4.74 (4.30-5.90) m/uL Hgb 13.9 (13.0-17.5) gm/dL Hct 40.5 (39.0-53.0) % MCV 85.6 (80.0-100.0) fL MCH 29.3 (25.0-35.0) pg MCHC 34.3 (31.0-37.0) g/dL RDW 14.2 (11.5-15.5) % Plt Count 347 (150-450) k/uL MPV 8.1 Neutrophils % 76 % Lymphocytes % 11 % Monocytes % 9 % Eosinophils % 0 % Basophils % 1 % Neutrophils # 8.8 H (1.3-7.7) k/uL Lymphocytes # 1.3 (1.0-4.8) k/uL Monocytes # 1.1 H (0-1.0) k/uL Eosinophils # 0.1 (0-0.7) k/uL Basophils # 0.1 (0-0.2) k/uL PT 10.4 (9.0-12.0) sec INR 1.0 (<1.2) APTT 20.8 L (22.0-30.0) sec Sodium (137-145) mmol/L Potassium (3.5-5.1) mmol/L Chloride (98-107) mmol/L Carbon Dioxide (22-30) mmol/L Anion Gap mmol/L BUN (9-20) mg/dL Creatinine (0.66-1.25) mg/dL Est GFR (CKD-EPI)AfAm (>60 ml/min/1.73 sqM) Est GFR (CKD-EPI)NonAf (>60 ml/min/1.73 sqM) Glucose (74-99) mg/dL POC Glucose (mg/dL) 99 (70-110) mg/dL POC Glu Oracle Software Engineer ID Buchanan, Deyvi Plasma Lactic Acid Duran (0.7-2.0) mmol/L Calcium (8.4-10.2) mg/dL Magnesium (1.6-2.3) mg/dL Total Bilirubin (0.2-1.3) mg/dL AST (17-59) U/L ALT (4-49) U/L Alkaline Phosphatase (38-126) U/L Troponin I (0.000-0.034) ng/mL Total Protein (6.3-8.2) g/dL Albumin (3.5-5.0) g/dL Influenza Type A (PCR) (Not Detectd) Influenza Type B (PCR) (Not Detectd) RSV (PCR) (Not Detectd) SARS-CoV-2 (PCR) (Not Detectd) 09/23/22 09/23/22 09/23/22 Range/Units 12:08 12:08 12:08 WBC (3.8-10.6) k/uL RBC (4.30-5.90) m/uL Hgb (13.0-17.5) gm/dL Hct (39.0-53.0) % MCV (80.0-100.0) fL MCH (25.0-35.0) pg MCHC (31.0-37.0) g/dL RDW (11.5-15.5) % Plt Count (150-450) k/uL MPV Neutrophils % % Lymphocytes % % Monocytes % % Eosinophils % % Basophils % % Neutrophils # (1.3-7.7) k/uL Lymphocytes # (1.0-4.8) k/uL Monocytes # (0-1.0) k/uL Eosinophils # (0-0.7) k/uL Basophils # (0-0.2) k/uL PT (9.0-12.0) sec INR (<1.2) APTT (22.0-30.0) sec Sodium 140 (137-145) mmol/L Potassium 3.7 (3.5-5.1) mmol/L Chloride 105 (98-107) mmol/L Carbon Dioxide 26 (22-30) mmol/L Anion Gap 9 mmol/L BUN 17 (9-20) mg/dL Creatinine 0.80 (0.66-1.25) mg/dL Est GFR (CKD-EPI)AfAm >90 (>60 ml/min/1.73 sqM) Est GFR (CKD-EPI)NonAf >90 (>60 ml/min/1.73 sqM) Glucose 93 (74-99) mg/dL POC Glucose (mg/dL) (70-110) mg/dL POC Glu Oracle Software Engineer ID Plasma Lactic Acid Duran 1.4 (0.7-2.0) mmol/L Calcium 9.5 (8.4-10.2) mg/dL Magnesium 2.0 (1.6-2.3) mg/dL Total Bilirubin 0.5 (0.2-1.3) mg/dL AST 23 (17-59) U/L ALT 23 (4-49) U/L Alkaline Phosphatase 120 (38-126) U/L Troponin I <0.012 (0.000-0.034) ng/mL Total Protein 6.7 (6.3-8.2) g/dL Albumin 4.3 (3.5-5.0) g/dL Influenza Type A (PCR) (Not Detectd) Influenza Type B (PCR) (Not Detectd) RSV (PCR) (Not Detectd) SARS-CoV-2 (PCR) (Not Detectd) 03/13/23 Range/Units 12:08 WBC (3.8-10.6) k/uL RBC (4.30-5.90) m/uL Hgb (13.0-17.5) gm/dL Hct (39.0-53.0) % MCV (80.0-100.0) fL MCH (25.0-35.0) pg MCHC (31.0-37.0) g/dL RDW (11.5-15.5) % Plt Count (150-450) k/uL MPV Neutrophils % % Lymphocytes % % Monocytes % % Eosinophils % % Basophils % % Neutrophils # (1.3-7.7) k/uL Lymphocytes # (1.0-4.8) k/uL Monocytes # (0-1.0) k/uL Eosinophils # (0-0.7) k/uL Basophils # (0-0.2) k/uL PT (9.0-12.0) sec INR (<1.2) APTT (22.0-30.0) sec Sodium (137-145) mmol/L Potassium (3.5-5.1) mmol/L Chloride (98-107) mmol/L Carbon Dioxide (22-30) mmol/L Anion Gap mmol/L BUN (9-20) mg/dL Creatinine (0.66-1.25) mg/dL Est GFR (CKD-EPI)AfAm (>60 ml/min/1.73 sqM) Est GFR (CKD-EPI)NonAf (>60 ml/min/1.73 sqM) Glucose (74-99) mg/dL POC Glucose (mg/dL) (70-110) mg/dL POC Glu Oracle Software Engineer ID Plasma Lactic Acid Duran (0.7-2.0) mmol/L Calcium (8.4-10.2) mg/dL Magnesium (1.6-2.3) mg/dL Total Bilirubin (0.2-1.3) mg/dL AST (17-59) U/L ALT (4-49) U/L Alkaline Phosphatase (38-126) U/L Troponin I (0.000-0.034) ng/mL Total Protein (6.3-8.2) g/dL Albumin (3.5-5.0) g/dL Influenza Type A (PCR) Not Detected (Not Detectd) Influenza Type B (PCR) Not Detected (Not Detectd) RSV (PCR) Not Detected (Not Detectd) SARS-CoV-2 (PCR) Not Detected (Not Detectd) - EKG Data -: EKG Interpreted by Me EKG Comments: 12-lead Electrocardiogram Interpretation Note EKG was reviewed and interpreted by myself. 12-lead ECG performed at 1212 is interpreted by me as revealing normal sinus rhythm at a rate of 60 beats per minute. Merrill is normal. PA interval is 171 ms, QRS durations 112 ms, QTc is 405 ms.. There were no acute ST or T wave abnormalities to suggest myocardial ischemia or injury. R wave progression across the precordium was satisfactory. By my interpretation this EKG is non-diagnostic for acute ischemia. When compared with EKG from July 2015, no significant change. There is an isolated T-wave inversion in aVL with reciprocal changes. Disposition Clinical Impression: Near syncope Disposition: HOME SELF-CARE Condition: Good Instructions (If sedation given, give patient instructions): Near Syncope (ED) Is patient prescribed a controlled substance at d/c from ED?: No Referrals: Camron Rivas MD [Primary Care Provider] - 1-2 days Time of Disposition: 13:40
--- NOTE | 2022-09-23 12:53 | CT ---
EXAMINATION TYPE: CT brain wo con CT DLP: 1155.2 mGycm, Automated exposure control for dose reduction was used. DATE OF EXAM: 09/23/2022 12:48 PM COMPARISON: CT brain 07/04/2013 CLINICAL INDICATION:Male, 62 years old with history of weakness, ams, right sided weakness TECHNIQUE: Brain: Multiple axial CT images of the brain were obtained without IV contrast. Coronal and sagittal reformats reviewed. FINDINGS: Brain: Extra-axial spaces: No abnormal extra-axial fluid collections. Ventricular system: Within normal limits Cerebral parenchyma: No acute intraparenchymal hemorrhage or mass effect. The flores-white junction is well differentiated. Cerebellum: Unremarkable. Mass effect: No evidence of midline shift. Intracranial vasculature: Atherosclerotic calcifications of the intracranial vessels. Soft tissues: Normal. Calvarium/osseous structures: No depressed skull fracture. Paranasal sinuses and mastoid air cells: The mastoid air cells are clear. Suggested mucous retention cyst within the left maxillary sinus measuring up to 1 cm. Visualized orbits: Orbital contents are intact. IMPRESSION: No acute intracranial process.
[2022-09-23 13:15] LABS: Partial Thromboplastin Time 20.8 sec (22.0-30.0)
--- NOTE | 2022-09-23 13:15 | CT ---
EXAMINATION TYPE: CT angio head neck CT DLP: 654.3 mGycm, Automated exposure control for dose reduction was used. DATE OF EXAM: 09/23/2022 1:00 PM COMPARISON: CTA chest 04/19/2019. CLINICAL INDICATION:Male, 62 years old with history of possible tia; PHH, ams, right arm numbness TECHNIQUE: Axially acquired helical CT angiogram of the head and neck was obtained with contrast util izing 65 cc of Isovue-370 administered intravenously. Axial images are supplemented with 3D reconstru ctions which were post-processed at an independent workstation. NASCET criteria used. FINDINGS: CTA HEAD: No evidence of acute intracranial hemorrhage, mass effect, or midline shift. The ventricles, sulci, a nd cisterns are unremarkable. The visualized portions of the internal carotid arteries, middle cerebral arteries, anterior cerebral arteries, and posterior cerebral arteries are patent. The basilar and vertebral arteries are patent. CTA NECK: Right Carotid System: The common carotid artery and external carotid artery are patent. The carotid bifurcation demonstrate s mild atherosclerotic calcification with no evidence of hemodynamically significant stenosis. Mild i ntracranial atherosclerotic calcification of the internal carotid artery. The remaining portions of t he internal carotid artery demonstrate normal size without significant narrowing. Left Carotid System: The common carotid artery and external carotid artery are patent. The carotid bifurcation demonstrate s mild atherosclerotic calcification with no evidence of hemodynamically significant stenosis. Mild i ntracranial atherosclerotic calcification of the internal carotid artery. The remaining portions of t he internal carotid artery demonstrate normal size without significant narrowing. Vertebral arteries are patent without evidence hemodynamically significant stenosis. Mild atheroscler otic calcification of both intracranial portions of the vertebral arteries. There is a three-vessel aortic arch. Ascending thoracic aortic aneurysm measuring 4.0 cm is redemonst rated with stable. The origins of the great vessels are patent. No evidence of hemodynamically signif icant stenosis. IMPRESSION: 1. No evidence of dissection of the cervical internal carotid arteries or vertebral arteries or any e vidence of significant stenosis at the carotid bifurcations. 2. No evidence of high-grade stenosis or intracranial aneurysm.
--- NOTE | 2022-09-23 13:16 | XR ---
EXAMINATION TYPE: XR chest 2V DATE OF EXAM: 09/23/2022 1:08 PM COMPARISON: Chest radiographs from 09/18/2022 TECHNIQUE: XR chest 2V Frontal and lateral views of the chest. CLINICAL INDICATION:Male, 62 years old with history of Weakness; FINDINGS: Lungs/Pleura: There is no evidence of pleural effusion, focal consolidation, or pneumothorax. Pulmonary vascularity: Unremarkable. Heart/mediastinum: Cardiomediastinal silhouette is unremarkable. Musculoskeletal: No acute osseous pathology. IMPRESSION: No acute cardiopulmonary disease/process.
[2022-09-23 13:57] VITALS: BP 172/99; PULSE 56; RESP 19; TEMP 97.7
== END 2022-09-23 13:57 | disposition home or self-care (01) ==
LOC: EC 11:18
DX: R55 Syncope and collapse (principal); K21.9 Gastro-esophageal reflux disease without esophagitis; I10 Essential (primary) hypertension; F32.A Depression, unspecified; E78.5 Hyperlipidemia, unspecified; F17.200 Nicotine dependence, unspecified, uncomplicated; Z88.8 Allergy status to other drugs, medicaments and biological substances; Z95.5 Presence of coronary angioplasty implant and graft; Z20.822 Contact with and (suspected) exposure to COVID-19; Z79.899 Other long term (current) drug therapy; Z79.82 Long term (current) use of aspirin
CPT/HCPCS: 96374; 99284; 36415; 93005; 80053; 83605; 83735; 84484; 85025; 85610; 85730; 87636; 71046; 70496; 70450; 70498; 96360; Q9967

== ENCOUNTER → 2022-09-26 | Outpatient (CLI) | payer MEDICARE ==
--- NOTE | 2022-09-26 09:47 | XR ---
EXAMINATION TYPE: XR lumbar spine 2 or 3V DATE OF EXAM: 09/26/2022 9:18 AM INDICATION: Patient age:Male; 62 years old; Reason for study: M47.26; COMPARISON: Radiographs 06/11/2022 TECHNIQUE: Frontal, lateral and coned in L5-S1 lateral views of the spine. FINDINGS: Fixation hardware throughout the lower spine is osseous fusion of L4 and L5. Hardware appea rs intact. Degeneration changes with osteophyte formation are seen throughout the spine. Discectomy a t L3-L4 and L4-L5 are present. Stable alignment of the spine. Facet joint arthropathy is present. No acute fractures definitively visualized. IMPRESSION: 1. Postsurgical changes without evidence for hardware failure. No evidence for acute fracture. Overa ll findings not significantly changed from prior. 2. Multilevel degeneration changes throughout the spine.
[2022-09-26 15:04] LABS: Eosinophils # (A) 0.13 X 10*3/uL (0.04-0.35); Eosinophils % (A) 1.3 %; HCT 43.2 % (39.6-50.0); HGB 14.1 g/dL (13.0-17.0); Immature Grans, Automated 1.8 %; Lymphocytes # (A) 2.43 X 10*3/uL (0.90-5.00); MCHC 32.6 g/dL (32.0-37.0); MCV 88.9 fL (80.0-97.0); Mean Platelet Volume 10.4 fL (9.5-12.2); Monocytes # (A) 0.89 X 10*3/uL (0.20-1.00); Monocytes % (A) 8.8 %; NRBC Per 100 WBC 0 /100 WBCS (0.0-0.0); Neutrophils # (A) 6.41 X 10*3/uL (1.80-7.70); Neutrophils % (A) 63.1 %; Platelet Count 333 X 10*3/uL (140-440); RBC 4.86 X 10*6/uL (4.40-5.60); RDW 14.3 % (11.5-14.5); WBC 10.14 X 10*3/uL (4.50-10.00)
[2022-09-26 15:50] LABS: ALT 23 U/L (10-49); AST 20 U/L (14-35); African American GFR (CKD) 91.8 (60.0-200.0); Blood Urea Nitrogen 14.1 mg/dL (9.0-27.0); C Reactive Protein <0.30 mg/dL (0.00-0.80); Non-African American GFR(CKD) 79.2 (60.0-200.0)
[2022-09-26 16:03] LABS: Chol/HDL Ratio 2.53 Ratio; LDL Cholesterol,Calculated 64.5 mg/dL (0.0-131.0); VLDL Calculation 18.32 mg/dL (5.00-40.00)
[2022-09-26 16:13] LABS: Erythrocyte Sedimentation Rate 1 mm/Hr (0-20)
== END | disposition home or self-care (01) ==
LOC: LABWHC1 08:45
PROVIDERS: ATTEND Internal Medicine Rheumatology
DX: M51.36 Other intervertebral disc degeneration, lumbar region (principal); M25.50 Pain in unspecified joint; M06.4 Inflammatory polyarthropathy; E78.79 Other disorders of bile acid and cholesterol metabolism; M47.26 Other spondylosis with radiculopathy, lumbar region; Z79.01 Long term (current) use of anticoagulants
CPT/HCPCS: 36415; 72100; 80061; 82565; 84450; 84460; 84520; 85025; 85652; 86140

== ENCOUNTER → 2022-10-11 | Outpatient (CLI) | payer MEDICARE ==
--- NOTE | 2022-10-11 20:18 | EEG ---
ELECTROENCEPHALOGRAM REPORT CLINICAL HISTORY: This is a 62-year-old gentleman with reported eye fluttering, dizziness, and episode of falling on the floor. The video EEG is obtained to evaluate for seizure epileptiform activity. RELEVANT MEDICATION: Pregabalin. EEG TYPE: A routine 21-channel EEG is performed with video using the 10/20 electrode placement system. DESCRIPTION: Wakefulness is only obtained. During awake state, the posterior-dominant rhythm consists of [id number] voltage of 9 to 9.5 hertz activity that is well modulated, well sustained. There is no physiological sleep architecture seen. There is no focal slowing. Interictal and ictal is none. ACTIVATION PROCEDURE: Photic stimulation did not evoke a posterior driving response. There is no abnormality during the photic stimulation. Hyperventilation is not performed. CLINICAL INTERPRETATION: This is a normal routine EEG. There is no focal slowing, epileptiform discharges, or seizure on the EEG. A normal routine EEG does not rule out underlying epilepsy. Clinical correlation is recommended. MMMICHELLE / TAYAN: [id number] /
== END ==
LOC: NEUROMAIN 07:45
PROVIDERS: ATTEND Internal Medicine Geriatric Medicine
DX: R56.9 Unspecified convulsions (principal); Z87.891 Personal history of nicotine dependence; Z88.8 Allergy status to other drugs, medicaments and biological substances
CPT/HCPCS: 95816

== ENCOUNTER → 2022-10-12 | Outpatient (CLI) | payer MEDICARE ==
--- NOTE | 2022-10-12 10:34 | MR ---
EXAMINATION TYPE: MR brain wo/w con DATE OF EXAM: 10/12/2022 COMPARISON: CT brain September 23, 2022 HISTORY: TIA, headaches, vision loss TECHNIQUE: Multiplanar, multisequence images of the brain and brainstem is performed without and with IV contras t, utilizing 8 mL intravenous Gadavist . FINDINGS: Diffusion weighted images demonstrate no evidence of a recent infarct or other diffusion ab normality. The ventricular system and cisternal spaces are normal in size and appearance. The brain volume is age appropriate. There is occasional scattered focus of T2 hyperintensity seen throughout t he white matter bilaterally. Lesions are nonspecific in appearance and distribution. Midline structures demonstrate normal morphology. The craniocervical junction appears within normal limits. Post contrast images demonstrate no abnormal enhancement. The dural venous sinuses appear pa tent. The visualized sinuses are clear and the globes are intact. IMPRESSION: Mild to minimal nonspecific white matter changes favor product of chronic small vessel is chemic change in patient of this age. No abnormal enhancement. No MRI evidence for a recent infarct.
== END | disposition home or self-care (01) ==
LOC: RADMRIMAIN 09:16
PROVIDERS: ATTEND Nurse Practitioner Family
DX: R90.82 White matter disease, unspecified (principal); G45.9 Transient cerebral ischemic attack, unspecified
CPT/HCPCS: 70553; A9585

== ENCOUNTER → 2023-01-22 | Outpatient (CLI) | payer MEDICARE ==
--- NOTE | 2023-01-22 14:16 | XR ---
EXAMINATION TYPE: XR cervical spine comp DATE OF EXAM: 01/22/2023 COMPARISON: 04/18/2020 HISTORY: Syncopal episodes TECHNIQUE: 5 view cervical spine FINDINGS: Facet degenerative changes are noted. Note is made of calcification in the expected region of the carotid bifurcations. Foraminal stenosis present on the right at C3-4 C4-5 and to a lesser degree C5-6 C6-7. Milder foramin al narrowing is present C3-4 C4-5 on the left. Prevertebral space is normal. Anterior vertebral body spurring is present C5. Narrowing of the disc h eight is present C5-6. Posterior spinal lamellar line is intact. The odontoid is limited with overlyi ng maxilla. IMPRESSION: 1. Degenerative disc change C5-6 with an anterior inferior vertebral body spurring at C5. 2. Foraminal narrowing present, greater on the right discussed above.
--- NOTE | 2023-01-22 16:02 | CT ---
EXAMINATION TYPE: CT angio neck DATE OF EXAM: 01/22/2023 HISTORY: TIA COMPARISON: 07/04/2013 CT DLP: 400 mGycm. Automated Exposure Control for Dose Reduction was Utilized. TECHNIQUE: CTA scan of the neck is performed with IV Contrast, patient injected with 65ml mL of Isov ue 370, axial images are obtained, coronal and sagittal reformatted images are reviewed. Three-D negin nstructed images are created on an independent workstation and reviewed. Source images are reviewed. FINDINGS: Carotid/Vascular Structures: There is a three-vessel arch. Calcifications at the bilateral carotid b ifurcations. Significant flow-limiting stenosis is not evident. Internal carotid arteries are patent to the skull base. Vertebral arteries are codominant. The vertebral arteries are patent to the skull base. Significant internal carotid artery stenosis is not evident. IMPRESSION: 1. No flow-limiting stenosis bilateral carotid bifurcations. NASCET criteria was used in interpretation of this exam?
== END | disposition home or self-care (01) ==
LOC: RADCTMAIN 13:35
PROVIDERS: ATTEND Internal Medicine Geriatric Medicine
DX: M50.322 Other cervical disc degeneration at C5-C6 level (principal); M48.02 Spinal stenosis, cervical region; G45.9 Transient cerebral ischemic attack, unspecified
CPT/HCPCS: 72050; 70498; Q9967

== ENCOUNTER → 2023-02-19 | Outpatient (CLI) | payer MEDICARE ==
[2023-02-19 17:17] LABS: Basophils # (A) 0.06 X 10*3/uL (0.00-0.10); Basophils % (A) 0.6 %; Eosinophils # (A) 0.11 X 10*3/uL (0.04-0.35); Eosinophils % (A) 1.2 %; HGB 14.2 d/dL (13.0-17.0); Lymphocytes # (A) 1.46 X 10*3/uL (0.90-5.00); Lymphocytes % (A) 15.7 %; MCH 30.5 pg (27.0-32.0); MCV 92.5 FL (80.0-97.0); Mean Platelet Volume 10.7 FL (9.5-12.2); Monocytes # (A) 0.67 X 10*3/uL (0.20-1.00); Monocytes % (A) 7.2 %; NRBC Per 100 WBC 0 X 10*3/uL (0.00-0.01); Neutrophils # (A) 6.92 X 10*3/uL (1.80-7.70); Neutrophils % (A) 74.8 %; Platelet Count 300 X 10*3/uL (140-440); RBC 4.65 X 10*6/uL (4.40-5.60); RDW 13.4 % (11.5-14.5); WBC 9.27 X 10*3/uL (4.50-10.00)
[2023-02-19 17:49] LABS: ALT 22 U/L (10-49); AST 23 U/L (14-35); Blood Urea Nitrogen 13.7 mg/dL (9.0-27.0); C Reactive Protein <0.30 mg/dL (0.00-0.80)
[2023-02-19 17:56] LABS: Erythrocyte Sedimentation Rate <1 mm/Hr (0-20)
== END | disposition home or self-care (01) ==
LOC: LABWHC1 08:44
PROVIDERS: ATTEND Internal Medicine Rheumatology
DX: L40.50 Arthropathic psoriasis, unspecified (principal)
CPT/HCPCS: 36415; 82565; 84450; 84460; 84520; 85025; 85652; 86140

== ENCOUNTER → 2023-05-14 | Outpatient (CLI) | payer MEDICARE ==
[2023-05-14 11:02] LABS: Basophils # (A) 0.06 X 10*3/uL (0.00-0.10); Basophils % (A) 0.6 %; Eosinophils # (A) 0.11 X 10*3/uL (0.04-0.35); Eosinophils % (A) 1.2 %; HCT 41.5 % (39.6-50.0); HGB 14.2 d/dL (13.0-17.0); Lymphocytes # (A) 1.75 X 10*3/uL (0.90-5.00); Lymphocytes % (A) 18.8 %; MCH 30.5 pg (27.0-32.0); MCHC 34.2 d/dL (32.0-37.0); MCV 89.2 FL (80.0-97.0); Mean Platelet Volume 10.4 FL (9.5-12.2); Monocytes # (A) 0.69 X 10*3/uL (0.20-1.00); Monocytes % (A) 7.4 %; NRBC Per 100 WBC 0 X 10*3/uL (0.00-0.01); Neutrophils # (A) 6.65 X 10*3/uL (1.80-7.70); Neutrophils % (A) 71.5 %; Platelet Count 324 X 10*3/uL (140-440); RBC 4.65 X 10*6/uL (4.40-5.60); RDW 13.5 % (11.5-14.5); WBC 9.31 X 10*3/uL (4.50-10.00)
[2023-05-14 11:24] LABS: ALT 16 U/L (10-49); AST 25 U/L (14-35); Blood Urea Nitrogen 12.5 mg/dL (9.0-27.0); C Reactive Protein <0.30 mg/dL (0.00-0.80)
[2023-05-14 12:25] LABS: Erythrocyte Sedimentation Rate 3 mm/Hr (0-20)
== END | disposition home or self-care (01) ==
LOC: LABWHC1 07:56
PROVIDERS: ATTEND Internal Medicine Rheumatology
DX: M25.50 Pain in unspecified joint (principal); M06.4 Inflammatory polyarthropathy; Z79.01 Long term (current) use of anticoagulants
CPT/HCPCS: 36415; 82565; 84450; 84460; 84520; 85025; 85652; 86140

== ENCOUNTER → 2023-09-30 | Outpatient (CLI) | payer MEDICARE ==
[2023-09-30 17:30] LABS: Basophils # (A) 0.04 X 10*3/uL (0.00-0.10); Basophils % (A) 0.6 %; Eosinophils # (A) 0.11 X 10*3/uL (0.04-0.35); Eosinophils % (A) 1.6 %; HCT 39.7 % (39.6-50.0); HGB 13.9 g/dL (13.0-17.0); Lymphocytes # (A) 1.08 X 10*3/uL (0.90-5.00); Lymphocytes % (A) 15.5 %; MCH 30.5 pg (27.0-32.0); MCV 87.3 FL (80.0-97.0); Mean Platelet Volume 10.4 FL (9.5-12.2); Monocytes # (A) 0.63 X 10*3/uL (0.20-1.00); Monocytes % (A) 9.1 %; NRBC Per 100 WBC 0 X 10*3/uL (0.00-0.01); Neutrophils # (A) 5.08 X 10*3/uL (1.80-7.70); Neutrophils % (A) 72.9 %; Platelet Count 316 X 10*3/uL (140-440); RBC 4.55 X 10*6/uL (4.40-5.60); RDW 13.2 % (11.5-14.5); WBC 6.96 X 10*3/uL (4.50-10.00)
[2023-09-30 17:37] LABS: Erythrocyte Sedimentation Rate 5 mm/Hr (0-20)
[2023-09-30 19:19] LABS: ALT 29 U/L (10-49); AST 29 U/L (14-35); Blood Urea Nitrogen 10.6 mg/dL (9.0-27.0); C Reactive Protein <0.30 mg/dL (0.00-0.80)
== END | disposition home or self-care (01) ==
LOC: LABWHC1 10:40
PROVIDERS: ATTEND Internal Medicine Rheumatology
DX: M25.50 Pain in unspecified joint (principal); M45.6 Ankylosing spondylitis lumbar region; Z79.01 Long term (current) use of anticoagulants
CPT/HCPCS: 36415; 82565; 84450; 84460; 84520; 85025; 85652; 86140

== ENCOUNTER → 2024-02-05 | Outpatient (CLI) | payer MEDICARE ==
[2024-02-05 15:18] LABS: ALT 19 U/L (10-49); AST 30 U/L (14-35); Blood Urea Nitrogen 14.6 mg/dL (9.0-27.0); C Reactive Protein <0.30 mg/dL (0.00-0.80)
[2024-02-05 15:48] LABS: Hepatitis B Surface AB- Quant 3.5 mIU/mL
[2024-02-05 16:36] LABS: Hepatitis B Surface Antigen Nonreactive (Nonreactive)
[2024-02-05 17:49] LABS: Acanthocytes 2+; Basophils # (A) 0.05 X 10*3/uL (0.00-0.10); Basophils % (A) 0.7 %; Elliptocytes 2+; Eosinophils # (A) 0.15 X 10*3/uL (0.04-0.35); Eosinophils % (A) 2.2 %; HCT 39.7 % (39.6-50.0); HGB 13.4 g/dL (13.0-17.0); Lymphocytes # (A) 1.06 X 10*3/uL (0.90-5.00); Lymphocytes % (A) 15.5 %; MCH 30.9 pg (27.0-32.0); MCHC 33.8 g/dL (32.0-37.0); MCV 91.7 FL (80.0-97.0); Mean Platelet Volume 11.9 FL (9.5-12.2); Microcytosis (M) 2+; Monocytes # (A) 0.63 X 10*3/uL (0.20-1.00); Monocytes % (A) 9.2 %; NRBC Per 100 WBC 0 X 10*3/uL (0.00-0.01); Neutrophils # (A) 4.94 X 10*3/uL (1.80-7.70); Neutrophils % (A) 72.1 %; Platelet Count 243 X 10*3/uL (140-440); RBC 4.33 X 10*6/uL (4.40-5.60); RDW 13.6 % (11.5-14.5); WBC 6.85 X 10*3/uL (4.50-10.00)
[2024-02-05 19:21] LABS: Erythrocyte Sedimentation Rate 2 mm/Hr (0-20)
== END | disposition home or self-care (01) ==
LOC: LABWHC1 09:15
PROVIDERS: ATTEND Internal Medicine Rheumatology
DX: M25.50 Pain in unspecified joint (principal); M06.4 Inflammatory polyarthropathy; Z79.01 Long term (current) use of anticoagulants
CPT/HCPCS: 36415; 82565; 84450; 84460; 84520; 85025; 85652; 86140; 86480; 86704; 86706; 87340

== ENCOUNTER → 2024-03-10 | Outpatient (CLI) | payer MEDICARE ==
[2024-03-10 15:16] LABS: Basophils # (A) 0.05 X 10*3/uL (0.00-0.10); Basophils % (A) 0.7 %; Eosinophils # (A) 0.15 X 10*3/uL (0.04-0.35); Eosinophils % (A) 2.2 %; HCT 37.4 % (39.6-50.0); HGB 12.8 g/dL (13.0-17.0); Lymphocytes # (A) 0.87 X 10*3/uL (0.90-5.00); Lymphocytes % (A) 12.8 %; MCH 31.8 pg (27.0-32.0); MCHC 34.2 g/dL (32.0-37.0); Mean Platelet Volume 11.4 FL (9.5-12.2); Monocytes # (A) 0.69 X 10*3/uL (0.20-1.00); Monocytes % (A) 10.2 %; NRBC Per 100 WBC 0 X 10*3/uL (0.00-0.01); Neutrophils % (A) 73.8 %; Platelet Count 264 X 10*3/uL (140-440); RBC 4.02 X 10*6/uL (4.40-5.60); RDW 13.6 % (11.5-14.5); WBC 6.78 X 10*3/uL (4.50-10.00)
[2024-03-10 16:21] LABS: Creatine Kinase 155 U/L (35-257)
[2024-03-10 16:22] LABS: ALT 19 U/L (10-49); AST 23 U/L (14-35); Albumin 4.4 g/dL (3.8-4.9); Albumin/Globulin Ratio 2.59 Ratio (1.60-3.17); Alkaline Phosphatase 100 U/L (41-126); BUN/Creat Ratio 14.11 Ratio (12.00-20.00); Blood Urea Nitrogen 12.7 mg/dL (9.0-27.0); Calcium 9.3 mg/dL (8.7-10.3); Carbon Dioxide 24.3 mmol/L (21.6-31.8); Chloride 112 mmol/L (96-109); Chol/HDL Ratio 2.65 Ratio; Globulin 1.7 g/dL (1.6-3.3); Glucose 99 mg/dL (70-110); Potassium 4.1 mmol/L (3.5-5.5); Sodium 148 mmol/L (135-145); Total Bilirubin 0.4 mg/dL (0.3-1.2); Total Protein 6.1 g/dL (6.2-8.2); VLDL Calculation 12.26 mg/dL (5.00-40.00)
== END | disposition home or self-care (01) ==
LOC: LABWHC1 10:00
PROVIDERS: ATTEND Internal Medicine Geriatric Medicine
DX: I25.10 Atherosclerotic heart disease of native coronary artery without angina pectoris (principal); E78.2 Mixed hyperlipidemia; R73.9 Hyperglycemia, unspecified; N40.1 Benign prostatic hyperplasia with lower urinary tract symptoms
CPT/HCPCS: 36415; 80053; 80061; 82550; 83036; 84153; 84443; 85025

== ENCOUNTER → 2024-08-02 | Outpatient (CLI) | payer MEDICARE ==
[2024-08-02 14:54] LABS: Basophils # (A) 0.04 X 10*3/uL (0.00-0.10); Basophils % (A) 0.6 %; Eosinophils % (A) 1.5 %; HCT 39.9 % (39.6-50.0); HGB 13.5 g/dL (13.0-17.0); Lymphocytes # (A) 0.85 X 10*3/uL (0.90-5.00); Lymphocytes % (A) 12.7 %; MCH 30.8 pg (27.0-32.0); MCHC 33.8 g/dL (32.0-37.0); MCV 90.9 FL (80.0-97.0); Mean Platelet Volume 10.4 FL (9.5-12.2); Monocytes # (A) 0.61 X 10*3/uL (0.20-1.00); Monocytes % (A) 9.1 %; NRBC Per 100 WBC 0 X 10*3/uL (0.00-0.01); Neutrophils # (A) 5.08 X 10*3/uL (1.80-7.70); Neutrophils % (A) 75.7 %; Platelet Count 301 X 10*3/uL (140-440); RBC 4.39 X 10*6/uL (4.40-5.60); WBC 6.71 X 10*3/uL (4.50-10.00)
[2024-08-02 15:26] LABS: ALT 16 U/L (10-49); AST 24 U/L (14-35); Albumin 4.2 g/dL (3.8-4.9); Albumin/Globulin Ratio 2.33 Ratio (1.60-3.17); Alkaline Phosphatase 92 U/L (41-126); Calcium 9.2 mg/dL (8.7-10.3); Carbon Dioxide 26.9 mmol/L (21.6-31.8); Chloride 108 mmol/L (96-109); Chol/HDL Ratio 2.25 Ratio; Creatine Kinase 130 U/L (35-257); Globulin 1.8 g/dL (1.6-3.3); Glucose 103 mg/dL (70-110); Potassium 3.9 mmol/L (3.5-5.5); Sodium 143 mmol/L (135-145); Total Bilirubin 0.5 mg/dL (0.3-1.2)
[2024-08-02 16:08] LABS: Erythrocyte Sedimentation Rate 4 mm/Hr (0-20)
== END | disposition home or self-care (01) ==
LOC: LABWHC1 10:10
PROVIDERS: ATTEND Internal Medicine Rheumatology
DX: I25.10 Atherosclerotic heart disease of native coronary artery without angina pectoris (principal); M25.50 Pain in unspecified joint; M06.4 Inflammatory polyarthropathy; R73.9 Hyperglycemia, unspecified; Z79.01 Long term (current) use of anticoagulants
CPT/HCPCS: 36415; 80053; 80061; 82550; 83036; 84443; 85025; 85652; 86140

== ENCOUNTER → 2025-01-07 | Outpatient (CLI) | payer MEDICARE ==
[2025-01-07 10:23] LABS: Basophils # (A) 0.05 X 10*3/uL (0.00-0.10); Basophils % (A) 0.8 %; Eosinophils # (A) 0.13 X 10*3/uL (0.04-0.35); Eosinophils % (A) 2.1 %; HCT 35.5 % (39.6-50.0); HGB 12.1 g/dL (13.0-17.0); Lymphocytes # (A) 1.13 X 10*3/uL (0.90-5.00); Lymphocytes % (A) 17.9 %; MCHC 34.1 g/dL (32.0-37.0); MCV 88.1 FL (80.0-97.0); Mean Platelet Volume 11.4 FL (9.5-12.2); Monocytes # (A) 0.83 X 10*3/uL (0.20-1.00); Monocytes % (A) 13.1 %; NRBC Per 100 WBC 0 X 10*3/uL (0.00-0.01); Neutrophils # (A) 4.17 X 10*3/uL (1.80-7.70); Neutrophils % (A) 65.8 %; Platelet Count 256 X 10*3/uL (140-440); RBC 4.03 X 10*6/uL (4.40-5.60); RDW 13.1 % (11.5-14.5); WBC 6.33 X 10*3/uL (4.50-10.00)
[2025-01-07 10:39] LABS: % Iron Saturation 15.93 (15.00-50.00); C Reactive Protein <0.30 mg/dL (0.00-0.80); Chol/HDL Ratio 2.72 Ratio; Iron 58 UG/DL (65-175); LDL Cholesterol,Calculated 69.3 mg/dL (0.0-131.0); Total Iron Binding Capacity 364 UG/DL (228-460)
[2025-01-07 10:40] LABS: ALT 22 U/L (10-49); AST 41 U/L (14-35); Alkaline Phosphatase 109 U/L (41-126); Blood Urea Nitrogen 13.2 mg/dL (9.0-27.0); Carbon Dioxide 23.7 mmol/L (21.6-31.8); Chloride 108 mmol/L (96-109); Glucose 109 mg/dL (70-110); Potassium 3.8 mmol/L (3.5-5.5); Sodium 144 mmol/L (135-145); Total Bilirubin 0.3 mg/dL (0.3-1.2); Total Protein 6.2 g/dL (6.2-8.2)
[2025-01-07 10:41] LABS: Albumin 4.2 g/dL (3.8-4.9)
[2025-01-07 11:02] LABS: Erythrocyte Sedimentation Rate 3 mm/Hr (0-20)
== END | disposition home or self-care (01) ==
LOC: LABWHC1 07:05
PROVIDERS: ATTEND Internal Medicine Geriatric Medicine
DX: I25.10 Atherosclerotic heart disease of native coronary artery without angina pectoris (principal); Q40.1 Congenital hiatus hernia; L40.50 Arthropathic psoriasis, unspecified; M15.9 Polyosteoarthritis, unspecified; M79.641 Pain in right hand; M79.642 Pain in left hand; R73.9 Hyperglycemia, unspecified
CPT/HCPCS: 36415; 80053; 80061; 82728; 83036; 83540; 83550; 84443; 85025; 85652; 86140

== ENCOUNTER → 2025-01-21 | Day surgery (SDC) | payer MEDICARE ==
[2025-01-20 10:12] VITALS: BMI 31.9
[~2025-01-21] MED LIST changes: -LACTATED RINGERS 1,000 ML IV SCH; -LIDOCAINE 1% (10MG/ML) FOR IV START INTRADERMA PRN; +LIDOCAINE 1% INJ 10MG/ML (20 ML MDV) ONE; +PROPOFOL 10 MG/ML 20 ML VIAL IV ONE
[2025-01-21] MEDS: IV FLUID CONTINUATION 1,000 ML IV ONE (06:54)
[2025-01-21 07:05] VITALS: RESP 16; TEMP 97.9
[2025-01-21] MEDS: LACTATED RINGERS 1,000 ML IV SCH (07:18)
--- NOTE | 2025-01-21 08:10 | P.PCN ---
Date of Procedure: 01/21/25 Procedure(s) Performed: Brief history: Patient is a pleasant 64-year-old white female scheduled for an elective upper endoscopy as well as colonoscopy as a part of evaluation of GERD/intermittent dysphagia to solids and iron deficiency anemia Procedure performed: Esophagogastroduodenoscopy with biopsy and dilation Colonoscopy Preoperative diagnosis: GERD/intermittent dysphagia to solids Iron deficiency anemia Anesthesia: MAC Procedure: After informed consent was obtained from the patient was brought into the endoscopy unit and IV sedation was administered by anesthesia under continuous monitoring. Initially upper endoscopy was done. The Olympus GF 160 video endoscope was inserted inserted into the mouth and esophagus intubated without any difficulty and was gradually advanced into the stomach and duodenum and carefully examined. The bulb and second part of the duodenum appeared normal. Biopsies were done from this area to rule out celiac disease. The scope was then withdrawn into the stomach adequately insufflated with air and upon careful examination the antrum and mild gastritis and biopsies were done from this area. Mucosa body, cardia and fundus appeared normal. The scope was then withdrawn into the esophagus. Hiatal hernia noted. There was a distal esophageal Schatzki's ring identified which was dilated using 20 mm TTS balloon for 30 seconds. Small mucosal tear with oozing identified. The GE junction was located at 40 cm to the incisors. It appeared regular with no erythema erosions or ulcerations. Rest of the esophagus appeared normal. Patient tolerated the procedure well. At this time the patient continued to remain sedation. Initial digital rectal e xamination was normal. Olympus CF 160 video colonoscope was then inserted into the rectum and gradually advanced to the cecum without any difficulty. Careful examination was performed as the scope was gradually being withdrawn. The prep was excellent. The cecum, ascending colon, transverse colon, descending colon, sigmoid colon and rectum appeared normal. Retroflexion was performed in the rec gokul and no lesions were noted. Patient tolerated the procedure well. Impression: 1. Upper endoscopy revealed distal esophageal Schatzki's ring status post balloon dilation using 20 mm TTS balloon, small hiatal hernia and mild antral gastritis 2. Colonoscopy was within normal limits with no evidence of colorectal neoplasia Recommendations: Findings of this examination were discussed with the patient as well as his family. He was advised to be on clear liquid diet for 2 hours. Continue with Nexium 20 mg daily and follow antireflux measures. Recommended repeat screening colonoscopy in 10 years.
[2025-01-21 08:33] VITALS: BP 118/81; PULSE 65
== END ==
LOC: ORWHC2ENDO 06:32
PROVIDERS: ATTEND Internal Medicine Gastroenterology
DX: R13.19 Other dysphagia (principal); K22.2 Esophageal obstruction; K21.9 Gastro-esophageal reflux disease without esophagitis; D50.9 Iron deficiency anemia, unspecified; Z87.19 Personal history of other diseases of the digestive system
CPT/HCPCS: 45378; 43239; 43249; J2003; J2704; C1726; 88305